=== PATIENT | female | born 1980 | race Caucasian/White ===

== ENCOUNTER 2017-10-08 12:05 | Emergency (ER) | payer MEDICAID ==
[2017-10-08 12:11] VITALS: TEMP 98.1
[2017-10-08] MEDS ORDERED: SODIUM CHLORIDE 0.9% 1,000 ML IV STA (12:40)
[2017-10-08 13:08] LABS: Appearance,Urine Clear (Clear); Bilirubin,Urine Negative (Negative); Blood,Urine Negative (Negative); Color,Urine Yellow; Glucose,Urine (UA) Negative (Negative); Ketones,Urine Negative (Negative); Leukocyte Esterase,Urine Negative (Negative); Nitrite,Urine Negative (Negative); PH, Urine 5.5 (5.0-8.0); Protein,Urine Negative (Negative); Specific Gravity,Urine 1.023 (1.001-1.035); Urobilinogen,Urine <2.0 mg/dL (<2.0)
[2017-10-08 13:09] LABS: Basophils % (A) 0 %; Eosinophils # (A) 0.2 k/uL (0-0.7); Eosinophils % (A) 1 %; HCT 47.2 % (34.0-46.0); HGB 15.9 gm/dL (11.4-16.0); Lymphocytes # (A) 0.7 k/uL (1.0-4.8); Lymphocytes % (A) 5 %; MCH 28.3 pg (25.0-35.0); MCHC 33.6 g/dL (31.0-37.0); MCV 84.3 fL (80.0-100.0); Mean Platelet Volume 8.4; Monocytes # (A) 0.4 k/uL (0-1.0); Monocytes % (A) 3 %; Neutrophils # (A) 12.2 k/uL (1.3-7.7); Neutrophils % (A) 90 %; Platelet Count 200 k/uL (150-450); RDW 12.6 % (11.5-15.5); WBC 13.6 k/uL (3.8-10.6)
[2017-10-08 13:19] LABS: ALT 23 U/L (9-52); AST 21 U/L (14-36); Albumin 4.2 g/dL (3.5-5.0); Alkaline Phosphatase 72 U/L (38-126); Anion Gap 13 mmol/L; Blood Urea Nitrogen 21 mg/dL (7-17); Calcium 9.4 mg/dL (8.4-10.2); Carbon Dioxide 17 mmol/L (22-30); Chloride 109 mmol/L (98-107); Glucose 95 mg/dL (74-99); Potassium 4.5 mmol/L (3.5-5.1); Sodium 139 mmol/L (137-145); Total Bilirubin 0.8 mg/dL (0.2-1.3); Total Protein 7.2 g/dL (6.3-8.2)
--- NOTE | 2017-10-08 13:25 | XR ---
EXAMINATION TYPE: XR chest 2V DATE OF EXAM: 10/08/2017 COMPARISON: NONE HISTORY: Chest pain TECHNIQUE: Frontal and lateral views of the chest are obtained. FINDINGS: There is no focal air space opacity. No evidence for pneumothorax. No pleural effusion. The cardiac silhouette size is within normal limits. The osseous structures are grossly intact. IMPRESSION: 1. No acute cardiopulmonary process.
[2017-10-08 15:01] VITALS: BP 119/59; PULSE 67; RESP 16
--- NOTE | 2017-10-08 15:43 | ED ---
Syncope HPI - General Chief Complaint: Syncope Stated Complaint: Near syncope Time Seen by Provider: 10/08/17 12:15 Source: patient Mode of arrival: ambulatory Limitations: no limitations - History of Present Illness Initial Comments: Patient complains of syncope. She has no chest pain or pressure. She has no belly or back pain. She has no nausea or vomiting. She is taking antibiotics for UTI. She states she has been having some diarrhea. There is no blood in the stool. She has no neck pain or stiffness. She has no focal weakness or trouble walking. She is tolerating oral intake. - Related Data Home Medications Medication Instructions Recorded Confirmed Topiramate [Topamax] 100 mg PO HS 10/08/17 10/08/17 Previous Rx's Medication Instructions Recorded Nitrofurantoin Monohyd/M-Cryst 100 mg PO Q12HR #14 cap 10/08/17 [Macrobid] Allergies Allergy/AdvReac Type Severity Reaction Status Date / Time acetaminophen AdvReac Chest Pain Verified 10/08/17 12:20 [From Excedrin Migraine] aspirin AdvReac Chest Pain Verified 10/08/17 12:20 [From Excedrin Migraine] caffeine AdvReac Chest Pain Verified 10/08/17 12:20 [From Excedrin Migraine] flu vaccination Allergy Unknown Uncoded 10/08/17 12:08 Review of Systems ROS Statement: Those systems with pertinent positive or pertinent negative responses have been documented in the HPI. ROS Other: All systems not noted in ROS Statement are negative. Past Medical History Additional Past Medical History / Comment(s): diverticulitis and migraines History of Any Multi-Drug Resistant Organisms: None Reported Past Surgical History: Adenoidectomy, Hysterectomy, Tonsillectomy Past Psychological History: No Psychological Hx Reported Smoking Status: Never smoker Past Alcohol Use History: Rare Past Drug Use History: None Reported General Exam Limitations: no limitations General appearance: alert, in no apparent distress Head exam: Present: atraumatic, normocephalic, normal inspection Eye exam: Present: normal appearance, PERRL, EOMI. Absent: scleral icterus, conjunctival injection, periorbital swelling ENT exam: Present: normal exam, mucous membranes moist Neck exam: Present: normal inspection. Absent: tenderness, meningismus, lymphadenopathy Respiratory exam: Present: normal lung sounds bilaterally. Absent: respiratory distress, wheezes, rales, rhonchi, stridor Cardiovascular Exam: Present: regular rate, normal rhythm, normal heart sounds. Absent: systolic murmur, diastolic murmur, rubs, gallop, clicks GI/Abdominal exam: Present: soft, normal bowel sounds. Absent: distended, tenderness, guarding, rebound, rigid Extremities exam: Present: normal inspection, full ROM, normal capillary refill. Absent: tenderness, pedal edema, joint swelling, calf tenderness Back exam: Present: normal inspection Neurological exam: Present: alert, oriented X3, CN II-XII intact Psychiatric exam: Present: normal affect, normal mood Skin exam: Present: warm, dry, intact, normal color. Absent: rash Course Vital Signs 10/08/17 10/08/17 12:08 15:00 Temperature 98.1 F Pulse Rate 89 67 Respiratory 18 16 Rate Blood Pressure 135/78 119/59 O2 Sat by Pulse 97 100 Oximetry EKG Findings - EKG Comments: EKG Findings:: Twelve-lead EKG shows ventricular rate 67 bpm, normal TX interval and QRS, axis, no ST elevation or depression, interpreted by me as normal sinus rhythm. Medical Decision Making - Medical Decision Making Patient presents with sick a be. Her EKG is normal. Her laboratory studies are consistent with a mild dehydration. I gave her IV fluids. She is feeling much better. She is tolerating orotate. She has no chest pain or shortness of breath. She is stable for discharge. - Lab Data Result diagrams: 10/08/17 12:45 10/08/17 12:45 Lab Results 10/08/17 10/08/17 10/08/17 Range/Units 12:45 12:45 12:45 WBC 13.6 H (3.8-10.6) k/uL RBC 5.60 H (3.80-5.40) m/uL Hgb 15.9 (11.4-16.0) gm/dL Hct 47.2 H (34.0-46.0) % MCV 84.3 (80.0-100.0) fL MCH 28.3 (25.0-35.0) pg MCHC 33.6 (31.0-37.0) g/dL RDW 12.6 (11.5-15.5) % Plt Count 200 (150-450) k/uL Neutrophils % 90 % Lymphocytes % 5 % Monocytes % 3 % Eosinophils % 1 % Basophils % 0 % Neutrophils # 12.2 H (1.3-7.7) k/uL Lymphocytes # 0.7 L (1.0-4.8) k/uL Monocytes # 0.4 (0-1.0) k/uL Eosinophils # 0.2 (0-0.7) k/uL Basophils # 0.0 (0-0.2) k/uL Sodium 139 (137-145) mmol/L Potassium 4.5 (3.5-5.1) mmol/L Chloride 109 H (98-107) mmol/L Carbon Dioxide 17 L (22-30) mmol/L Anion Gap 13 mmol/L BUN 21 H (7-17) mg/dL Creatinine 0.91 (0.52-1.04) mg/dL Est GFR (CKD-EPI)AfAm >90 (>60 ml/min/1.73 sqM) Est GFR (CKD-EPI)NonAf 81 (>60 ml/min/1.73 sqM) Glucose 95 (74-99) mg/dL Calcium 9.4 (8.4-10.2) mg/dL Total Bilirubin 0.8 (0.2-1.3) mg/dL AST 21 (14-36) U/L ALT 23 (9-52) U/L Alkaline Phosphatase 72 (38-126) U/L Troponin I <0.012 (0.000-0.034) ng/mL Total Protein 7.2 (6.3-8.2) g/dL Albumin 4.2 (3.5-5.0) g/dL Urine Color Urine Appearance (Clear) Urine pH (5.0-8.0) Ur Specific [place] (1.001-1.035) Urine Protein (Negative) Urine Glucose (UA) (Negative) Urine Ketones (Negative) Urine Blood (Negative) Urine Nitrite (Negative) Urine Bilirubin (Negative) Urine Urobilinogen (<2.0) mg/dL Ur Leukocyte Esterase (Negative) 10/08/17 Range/Units 12:45 WBC (3.8-10.6) k/uL RBC (3.80-5.40) m/uL Hgb (11.4-16.0) gm/dL Hct (34.0-46.0) % MCV (80.0-100.0) fL MCH (25.0-35.0) pg MCHC (31.0-37.0) g/dL RDW (11.5-15.5) % Plt Count (150-450) k/uL Neutrophils % % Lymphocytes % % Monocytes % % Eosinophils % % Basophils % % Neutrophils # (1.3-7.7) k/uL Lymphocytes # (1.0-4.8) k/uL Monocytes # (0-1.0) k/uL Eosinophils # (0-0.7) k/uL Basophils # (0-0.2) k/uL Sodium (137-145) mmol/L Potassium (3.5-5.1) mmol/L Chloride (98-107) mmol/L Carbon Dioxide (22-30) mmol/L Anion Gap mmol/L BUN (7-17) mg/dL Creatinine (0.52-1.04) mg/dL Est GFR (CKD-EPI)AfAm (>60 ml/min/1.73 sqM) Est GFR (CKD-EPI)NonAf (>60 ml/min/1.73 sqM) Glucose (74-99) mg/dL Calcium (8.4-10.2) mg/dL Total Bilirubin (0.2-1.3) mg/dL AST (14-36) U/L ALT (9-52) U/L Alkaline Phosphatase (38-126) U/L Troponin I (0.000-0.034) ng/mL Total Protein (6.3-8.2) g/dL Albumin (3.5-5.0) g/dL Urine Color Yellow Urine Appearance Clear (Clear) Urine pH 5.5 (5.0-8.0) Ur Specific [place] 1.023 (1.001-1.035) Urine Protein Negative (Negative) Urine Glucose (UA) Negative (Negative) Urine Ketones Negative (Negative) Urine Blood Negative (Negative) Urine Nitrite Negative (Negative) Urine Bilirubin Negative (Negative) Urine Urobilinogen <2.0 (<2.0) mg/dL Ur Leukocyte Esterase Negative (Negative) Disposition Clinical Impression: Vasovagal syncope Disposition: HOME SELF-CARE Condition: Good Instructions: Syncope (ED) Prescriptions: Nitrofurantoin Monohyd/M-Cryst [Macrobid] 100 mg PO Q12HR #14 cap Referrals: Dmitriy Dougherty MD [Primary Care Provider] - 1-2 days
== END 2017-10-08 15:58 | disposition home or self-care (01) ==
LOC: EC 12:05
DX: R55 Syncope and collapse (principal); R19.7 Diarrhea, unspecified; Z87.440 Personal history of urinary (tract) infections; Z86.69 Personal history of other diseases of the nervous system and sense organs; Z88.6 Allergy status to analgesic agent; Z88.7 Allergy status to serum and vaccine; Z88.8 Allergy status to other drugs, medicaments and biological substances; Z79.899 Other long term (current) drug therapy
CPT/HCPCS: 36415; 71046; 80053; 81003; 84484; 85025; 93005; 96360; 99284

== ENCOUNTER → 2017-10-10 | Outpatient (CLI) | payer MEDICAID ==
[2017-10-10 17:28] LABS: Basophils % (A) 0 %; Eosinophils # (A) 0.2 k/uL (0-0.7); Eosinophils % (A) 3 %; HCT 42.9 % (34.0-46.0); HGB 14.3 gm/dL (11.4-16.0); Lymphocytes # (A) 1.7 k/uL (1.0-4.8); Lymphocytes % (A) 25 %; MCH 28.3 pg (25.0-35.0); MCHC 33.3 g/dL (31.0-37.0); MCV 84.9 fL (80.0-100.0); Monocytes # (A) 0.4 k/uL (0-1.0); Monocytes % (A) 5 %; Neutrophils # (A) 4.5 k/uL (1.3-7.7); Neutrophils % (A) 66 %; Platelet Count 193 k/uL (150-450); RBC 5.05 m/uL (3.80-5.40); RDW 12.6 % (11.5-15.5); WBC 6.9 k/uL (3.8-10.6)
[2017-10-11 14:56] LABS: C. trachomatis,PCR Negative (Neg,Equiv); Chlamydia trachomatis Source Urine; N. gonorrhoeae,PCR Negative (Neg,Equiv); Neisseria Source Urine
== END | disposition home or self-care (01) ==
LOC: LABWHC1 16:48
PROVIDERS: ATTEND Family Medicine
DX: D72.829 Elevated white blood cell count, unspecified (principal); R10.2 Pelvic and perineal pain; R30.0 Dysuria
CPT/HCPCS: 36415; 85025; 87491; 87591

== ENCOUNTER 2018-04-04 06:07 | Emergency (ER) | payer MEDICAID ==
[2018-04-04 06:16] VITALS: PULSE 78
--- NOTE | 2018-04-04 07:04 | XR ---
EXAM: XR Chest, 2 Views CLINICAL HISTORY: Its. reason XR Reason: shortness of breath TECHNIQUE: Frontal and lateral views of the chest. COMPARISON: 10/08/17 FINDINGS: Lungs: Unremarkable. No consolidation. Pleural space: Unremarkable. No pneumothorax. Heart: Unremarkable. No cardiomegaly. Mediastinum: Unremarkable. Bones/joints: Unremarkable. IMPRESSION: Stable chest. No acute pulmonary disease
[2018-04-04] MEDS ORDERED: KETOROLAC 30 MG/ML 1 ML VIAL IVP STA (07:11)
[2018-04-04] MEDS ORDERED: SODIUM CHLORIDE 0.9% 1,000 ML IV ONE (07:11)
[2018-04-04] MEDS ORDERED: IPRATROPIUM-ALBUTEROL 3 ML NEB INHALATION STA (07:14)
--- NOTE | 2018-04-04 07:18 | ED ---
General Adult HPI - General Chief complaint: Upper Respiratory Infection Stated complaint: Chest Congestion/Cough Time Seen by Provider: 04/04/18 06:59 Source: patient, RN notes reviewed, old records reviewed Mode of arrival: ambulatory Limitations: no limitations - History of Present Illness Initial comments: 37 yo female presents with a one-week history of cough and nasal congestion. Patient had initially had URI symptoms which she attributed to viral infection which she caught from her son. The symptoms improved and then secondarily she developed worsening cough, nasal congestion, dyspnea and chest pain with cough. She did also have yellow sputum production. Subjective fever and chills. No abdominal pain. No nausea vomiting. No rash. No dysuria. Patient is otherwise healthy. - Related Data Home Medications Medication Instructions Recorded Confirmed Topiramate [Topamax] 100 mg PO HS 10/08/17 10/08/17 Previous Rx's Medication Instructions Recorded Nitrofurantoin Monohyd/M-Cryst 100 mg PO Q12HR #14 cap 10/08/17 [Macrobid] Albuterol Inhaler [Ventolin Hfa 1 - 2 puff INHALATION Q4HR PRN #1 04/04/18 Inhaler] inhaler Azithromycin [Zithromax Z-pack] 0 mg PO DIRECTED #6 tab 04/04/18 Allergies Allergy/AdvReac Type Severity Reaction Status Date / Time Sulfa (Sulfonamide Allergy Rash/Hives Verified 10/10/17 08:20 Antibiotics) acetaminophen AdvReac Chest Pain Verified 10/08/17 12:20 [From Excedrin Migraine] aspirin AdvReac Chest Pain Verified 10/08/17 12:20 [From Excedrin Migraine] caffeine AdvReac Chest Pain Verified 10/08/17 12:20 [From Excedrin Migraine] flu vaccination Allergy Unknown Uncoded 10/08/17 12:08 Review of Systems ROS Statement: Those systems with pertinent positive or pertinent negative responses have been documented in the HPI. ROS Other: All systems not noted in ROS Statement are negative. Past Medical History Additional Past Medical History / Comment(s): diverticulitis and migraines History of Any Multi-Drug Resistant Organisms: None Reported Past Surgical History: Adenoidectomy, Hysterectomy, Tonsillectomy Past Psychological History: No Psychological Hx Reported Smoking Status: Never smoker Past Alcohol Use History: Rare Past Drug Use History: None Reported General Exam Limitations: no limitations General appearance: alert, in no apparent distress Head exam: Present: atraumatic, normocephalic Eye exam: Present: normal appearance, PERRL, EOMI ENT exam: Absent: normal oropharynx (Mild pharyngeal erythema) Respiratory exam: Present: other (Bronchospastic cough). Absent: respiratory distress Cardiovascular Exam: Present: regular rate, normal rhythm GI/Abdominal exam: Present: soft, distended Neurological exam: Present: alert, oriented X3, CN II-XII intact. Absent: motor sensory deficit Psychiatric exam: Present: normal affect, normal mood Skin exam: Present: warm, dry, intact. Absent: cyanosis, diaphoretic Course Vital Signs 04/04/18 04/04/18 04/04/18 06:14 06:16 07:29 Temperature 97.3 F L Pulse Rate 78 78 Respiratory 18 18 Rate Blood Pressure 143/91 O2 Sat by Pulse 97 Oximetry 04/04/18 07:39 Temperature Pulse Rate 78 Respiratory Rate Blood Pressure O2 Sat by Pulse Oximetry - Reevaluation(s) Reevaluation #1: 04/04/18 08:44 On reevaluation, patient is feeling better, dyspnea improved after DuoNeb Medical Decision Making - Medical Decision Making 37 yo female presenting with signs and symptoms of upper respiratory tract infection. Chest x-rays obtained, negative for focal pneumonia. Patient has been on Augmentin, her symptoms have not improved. She is approximately one week with symptoms. Laboratory studies obtained, normal CMP, mild leukocytosis although the patient has been on steroids. Normal urinalysis, normal lactic acid. Patient receives IV hydration, Toradol, and DuoNeb in the emergency department on reevaluation she is feeling better. She will be discharged with azithromycin, and albuterol. She will return with worsening or changing symptoms. - Lab Data Result diagrams: 04/04/18 07:25 04/04/18 07:25 Lab Results 04/04/18 04/04/18 04/04/18 Range/Units 07:25 07:25 07:25 WBC 14.3 H (3.8-10.6) k/uL RBC 5.28 (3.80-5.40) m/uL Hgb 15.5 (11.4-16.0) gm/dL Hct 46.4 H (34.0-46.0) % MCV 87.8 (80.0-100.0) fL MCH 29.3 (25.0-35.0) pg MCHC 33.4 (31.0-37.0) g/dL RDW 12.6 (11.5-15.5) % Plt Count 238 (150-450) k/uL Neutrophils % 67 % Lymphocytes % 23 % Monocytes % 5 % Eosinophils % 4 % Basophils % 1 % Neutrophils # 9.5 H (1.3-7.7) k/uL Lymphocytes # 3.2 (1.0-4.8) k/uL Monocytes # 0.7 (0-1.0) k/uL Eosinophils # 0.6 (0-0.7) k/uL Basophils # 0.1 (0-0.2) k/uL Sodium 142 (137-145) mmol/L Potassium 4.2 (3.5-5.1) mmol/L Chloride 112 H (98-107) mmol/L Carbon Dioxide 19 L (22-30) mmol/L Anion Gap 11 mmol/L BUN 17 (7-17) mg/dL Creatinine 0.78 (0.52-1.04) mg/dL Est GFR (CKD-EPI)AfAm >90 (>60 ml/min/1.73 sqM) Est GFR (CKD-EPI)NonAf >90 (>60 ml/min/1.73 sqM) Glucose 99 (74-99) mg/dL Plasma Lactic Acid [place] 1.2 (0.7-2.0) mmol/L Calcium 9.1 (8.4-10.2) mg/dL Total Bilirubin 0.5 (0.2-1.3) mg/dL AST 23 (14-36) U/L ALT 18 (9-52) U/L Alkaline Phosphatase 63 (38-126) U/L Total Protein 7.0 (6.3-8.2) g/dL Albumin 4.0 (3.5-5.0) g/dL Urine Color Urine Appearance (Clear) Urine pH (5.0-8.0) Ur Specific [place] (1.001-1.035) Urine Protein (Negative) Urine Glucose (UA) (Negative) Urine Ketones (Negative) Urine Blood (Negative) Urine Nitrite (Negative) Urine Bilirubin (Negative) Urine Urobilinogen (<2.0) mg/dL Ur Leukocyte Esterase (Negative) 04/04/18 Range/Units 07:25 WBC (3.8-10.6) k/uL RBC (3.80-5.40) m/uL Hgb (11.4-16.0) gm/dL Hct (34.0-46.0) % MCV (80.0-100.0) fL MCH (25.0-35.0) pg MCHC (31.0-37.0) g/dL RDW (11.5-15.5) % Plt Count (150-450) k/uL Neutrophils % % Lymphocytes % % Monocytes % % Eosinophils % % Basophils % % Neutrophils # (1.3-7.7) k/uL Lymphocytes # (1.0-4.8) k/uL Monocytes # (0-1.0) k/uL Eosinophils # (0-0.7) k/uL Basophils # (0-0.2) k/uL Sodium (137-145) mmol/L Potassium (3.5-5.1) mmol/L Chloride (98-107) mmol/L Carbon Dioxide (22-30) mmol/L Anion Gap mmol/L BUN (7-17) mg/dL Creatinine (0.52-1.04) mg/dL Est GFR (CKD-EPI)AfAm (>60 ml/min/1.73 sqM) Est GFR (CKD-EPI)NonAf (>60 ml/min/1.73 sqM) Glucose (74-99) mg/dL Plasma Lactic Acid [place] (0.7-2.0) mmol/L Calcium (8.4-10.2) mg/dL Total Bilirubin (0.2-1.3) mg/dL AST (14-36) U/L ALT (9-52) U/L Alkaline Phosphatase (38-126) U/L Total Protein (6.3-8.2) g/dL Albumin (3.5-5.0) g/dL Urine Color Yellow Urine Appearance Clear (Clear) Urine pH 6.0 (5.0-8.0) Ur Specific [place] 1.023 (1.001-1.035) Urine Protein Negative (Negative) Urine Glucose (UA) Negative (Negative) Urine Ketones Negative (Negative) Urine Blood Negative (Negative) Urine Nitrite Negative (Negative) Urine Bilirubin Negative (Negative) Urine Urobilinogen 2.0 (<2.0) mg/dL Ur Leukocyte Esterase Negative (Negative) Disposition Clinical Impression: Upper respiratory infection Disposition: HOME SELF-CARE Condition: Good Instructions: Upper Respiratory Infection (ED), Acute Bronchitis (ED) Prescriptions: Albuterol Inhaler [Ventolin Hfa Inhaler] 1 - 2 puff INHALATION Q4HR PRN #1 inhaler PRN Reason: Shortness Of Breath Azithromycin [Zithromax Z-pack] 0 mg PO DIRECTED #6 tab Is patient prescribed a controlled substance at d/c from ED?: No Referrals: Dmitriy Dougherty MD [Primary Care Provider] - 1-2 days Time of Disposition: 08:47
[2018-04-04 07:58] LABS: Appearance,Urine Clear (Clear); Basophils # (A) 0.1 k/uL (0-0.2); Basophils % (A) 1 %; Bilirubin,Urine Negative (Negative); Blood,Urine Negative (Negative); Color,Urine Yellow; Eosinophils # (A) 0.6 k/uL (0-0.7); Eosinophils % (A) 4 %; Glucose,Urine (UA) Negative (Negative); HCT 46.4 % (34.0-46.0); HGB 15.5 gm/dL (11.4-16.0); Ketones,Urine Negative (Negative); Leukocyte Esterase,Urine Negative (Negative); Lymphocytes # (A) 3.2 k/uL (1.0-4.8); Lymphocytes % (A) 23 %; MCH 29.3 pg (25.0-35.0); MCHC 33.4 g/dL (31.0-37.0); MCV 87.8 fL (80.0-100.0); Mean Platelet Volume 8.1; Monocytes # (A) 0.7 k/uL (0-1.0); Monocytes % (A) 5 %; Neutrophils # (A) 9.5 k/uL (1.3-7.7); Neutrophils % (A) 67 %; Nitrite,Urine Negative (Negative); Platelet Count 238 k/uL (150-450); Protein,Urine Negative (Negative); RBC 5.28 m/uL (3.80-5.40); RDW 12.6 % (11.5-15.5); Specific Gravity,Urine 1.023 (1.001-1.035); WBC 14.3 k/uL (3.8-10.6)
[2018-04-04 08:07] LABS: Anion Gap 11 mmol/L; Calcium 9.1 mg/dL (8.4-10.2); Carbon Dioxide 19 mmol/L (22-30); Chloride 112 mmol/L (98-107); Glucose 99 mg/dL (74-99); Sodium 142 mmol/L (137-145); Total Bilirubin 0.5 mg/dL (0.2-1.3)
[2018-04-04 08:13] LABS: ALT 18 U/L (9-52); AST 23 U/L (14-36); Alkaline Phosphatase 63 U/L (38-126); Blood Urea Nitrogen 17 mg/dL (7-17); Potassium 4.2 mmol/L (3.5-5.1)
[2018-04-04] MEDS ORDERED: DEXAMETHASONE SOD PHOSPHATE 10 MG/ML 1 ML VIAL IV STA (08:44)
[2018-04-04 09:02] VITALS: BP 129/74; RESP 16; TEMP 98.8
== END 2018-04-04 09:00 | disposition home or self-care (01) ==
LOC: EC 06:07
DX: J06.9 Acute upper respiratory infection, unspecified (principal); D72.829 Elevated white blood cell count, unspecified; R14.0 Abdominal distension (gaseous); Z88.2 Allergy status to sulfonamides; Z88.6 Allergy status to analgesic agent; Z88.7 Allergy status to serum and vaccine; Z91.018 Allergy to other foods; Z79.899 Other long term (current) drug therapy; Z86.69 Personal history of other diseases of the nervous system and sense organs; Z90.89 Acquired absence of other organs
CPT/HCPCS: 36415; 94640; 80053; 83605; 85025; 81003; 71046; 99285; 96374; 96375; 96361; J1100; J1885

== ENCOUNTER 2018-05-07 17:33 | Emergency (ER) | payer MEDICAID ==
[2018-05-07 17:46] VITALS: BP 149/84; PULSE 76; RESP 20; TEMP 98.4
[2018-05-07] MEDS ORDERED: KETOROLAC 30 MG/ML 1 ML VIAL IVP STA (18:35)
[2018-05-07] MEDS ORDERED: MORPHINE SULFATE 4 MG/ML SYRINGE IVP STA (18:35)
[2018-05-07] MEDS ORDERED: ONDANSETRON 4 MG/2 ML VIAL IVP STA (18:35)
[2018-05-07] MEDS ORDERED: SODIUM CHLORIDE 0.9% 1,000 ML IV ONE (18:35)
--- NOTE | 2018-05-07 18:36 | ED ---
Abdominal Pain HPI - General Chief Complaint: Abdominal Pain Stated Complaint: pelvic pain Time Seen by Provider: 05/07/18 17:52 Source: patient, RN notes reviewed, old records reviewed Mode of arrival: ambulatory Limitations: no limitations - History of Present Illness Initial Comments: Patient is a 38-year-old female presents emergency department stay with chief complaint of 3 days of progressive left lower quadrant abdominal pain. Patient believes that he is having an acute flareup of diverticulitis. Symptoms started after she ate peanut evidence. Patient states that she's been having diarrhea and complains of rectal pain. Patient states she has had intermittent fevers and chills. No vomiting episodes but does feel nauseated. - Related Data Home Medications Medication Instructions Recorded Confirmed Topiramate [Topamax] 100 mg PO HS 10/08/17 05/07/18 Albuterol Inhaler [Ventolin Hfa 1 - 2 puff INHALATION RT-Q4H PRN 05/07/18 Inhaler] Previous Rx's Medication Instructions Recorded Ciprofloxacin HCl 500 mg PO BID #20 tab 05/07/18 HYDROcodone/APAP 5-325MG [[place] 1 tab PO Q6HR PRN 3 Days #12 tab 05/07/18 5-325] metroNIDAZOLE [Flagyl] 500 mg PO TID #30 tab 05/07/18 Allergies Allergy/AdvReac Type Severity Reaction Status Date / Time Sulfa (Sulfonamide Allergy Rash/Hives Verified 05/07/18 18:28 Antibiotics) acetaminophen AdvReac Chest Pain Verified 05/07/18 18:28 [From Excedrin Migraine] aspirin AdvReac Chest Pain Verified 05/07/18 18:28 [From Excedrin Migraine] caffeine AdvReac Chest Pain Verified 05/07/18 18:28 [From Excedrin Migraine] flu vaccination Allergy Unknown Uncoded 05/07/18 17:46 Review of Systems ROS Statement: Those systems with pertinent positive or pertinent negative responses have been documented in the HPI. ROS Other: All systems not noted in ROS Statement are negative. Past Medical History Past Medical History: Pneumonia Additional Past Medical History / Comment(s): diverticulitis and migraines History of Any Multi-Drug Resistant Organisms: None Reported Past Surgical History: Adenoidectomy, Hysterectomy, Tonsillectomy Past Psychological History: No Psychological Hx Reported Smoking Status: Never smoker Past Alcohol Use History: Rare Past Drug Use History: None Reported General Exam - General Exam Comments Initial Comments: 38-year-old female. Patient is alert and oriented. Patient appears in no acute distress. Limitations: no limitations General appearance: alert, in no apparent distress Head exam: Present: atraumatic, normocephalic, normal inspection Eye exam: Present: normal appearance, PERRL, EOMI. Absent: scleral icterus, conjunctival injection, periorbital swelling ENT exam: Present: normal exam, mucous membranes moist Neck exam: Present: normal inspection. Absent: tenderness, meningismus, lymphadenopathy Respiratory exam: Present: normal lung sounds bilaterally. Absent: respiratory distress, wheezes, rales, rhonchi, stridor Cardiovascular Exam: Present: regular rate, normal rhythm, normal heart sounds. Absent: systolic murmur, diastolic murmur, rubs, gallop, clicks GI/Abdominal exam: Present: soft, tenderness (Left lower quadrant tenderness.), normal bowel sounds. Absent: distended, guarding, rebound, rigid Extremities exam: Present: normal inspection, full ROM, normal capillary refill. Absent: tenderness, pedal edema, joint swelling, calf tenderness Back exam: Present: normal inspection Neurological exam: Present: alert, oriented X3, CN II-XII intact Psychiatric exam: Present: normal affect, normal mood Course Vital Signs 05/07/18 17:43 Temperature 98.4 F Pulse Rate 76 Respiratory 20 Rate Blood Pressure 149/84 O2 Sat by Pulse 99 Oximetry Medical Decision Making - Medical Decision Making Patient is a 38-year-old female presents today with chief complaint of 3 days of left-sided lower abdominal pain. She reports the pain with having a bowel movement. She's had history of diverticulitis in the past. Symptoms started after eating peanuts. At this time patient's lab work does show leukocytosis with blood cell count is elevated at 14,000. Patient otherwise is unremarkable lab work. She does have an outpatient transvaginal ultrasound which did show some right ovarian follicles likely ruptured hemorrhagic cyst however Patient has no pain over the right quadrant. Patient at this time CT was completed. There is evidence of some fat stranding consistent with diverticulitis. We'll give the Patient does of IV antibiotic emergency department discharge the Patient home on Cipro Flagyl and pain medication. We'll be Somewhat Conform. Discussed Following up with PCP and GI. Patient Agrees Treatment Plan Will Comply. - Lab Data Result diagrams: 05/07/18 18:20 05/07/18 18:20 Lab Results 05/07/18 05/07/18 05/07/18 Range/Units 18:20 18:20 18:20 WBC 14.1 H (3.8-10.6) k/uL RBC 5.09 (3.80-5.40) m/uL Hgb 14.6 (11.4-16.0) gm/dL Hct 44.5 (34.0-46.0) % MCV 87.4 (80.0-100.0) fL MCH 28.7 (25.0-35.0) pg MCHC 32.8 (31.0-37.0) g/dL RDW 12.5 (11.5-15.5) % Plt Count 227 (150-450) k/uL Neutrophils % 75 % Lymphocytes % 18 % Monocytes % 3 % Eosinophils % 2 % Basophils % 0 % Neutrophils # 10.6 H (1.3-7.7) k/uL Lymphocytes # 2.6 (1.0-4.8) k/uL Monocytes # 0.5 (0-1.0) k/uL Eosinophils # 0.3 (0-0.7) k/uL Basophils # 0.0 (0-0.2) k/uL Sodium 139 (137-145) mmol/L Potassium 4.1 (3.5-5.1) mmol/L Chloride 111 H (98-107) mmol/L Carbon Dioxide 16 L (22-30) mmol/L Anion Gap 12 mmol/L BUN 26 H (7-17) mg/dL Creatinine 0.87 (0.52-1.04) mg/dL Est GFR (CKD-EPI)AfAm >90 (>60 ml/min/1.73 sqM) Est GFR (CKD-EPI)NonAf 86 (>60 ml/min/1.73 sqM) Glucose 91 (74-99) mg/dL Calcium 9.7 (8.4-10.2) mg/dL Total Bilirubin 0.6 (0.2-1.3) mg/dL AST 23 (14-36) U/L ALT 24 (9-52) U/L Alkaline Phosphatase 61 (38-126) U/L Total Protein 7.2 (6.3-8.2) g/dL Albumin 4.1 (3.5-5.0) g/dL Amylase 69 (30-110) U/L Lipase 170 (23-300) U/L Urine Color Yellow Urine Appearance Clear (Clear) Urine pH 5.5 (5.0-8.0) Ur Specific [place] 1.022 (1.001-1.035) Urine Protein Negative (Negative) Urine Glucose (UA) Negative (Negative) Urine Ketones Negative (Negative) Urine Blood Negative (Negative) Urine Nitrite Negative (Negative) Urine Bilirubin Negative (Negative) Urine Urobilinogen <2.0 (<2.0) mg/dL Ur Leukocyte Esterase Negative (Negative) - Radiology Data Radiology results: report reviewed Some fat stranding around the distal sigmoid colon in the pelvis consistent with mild focal diverticulitis no drainable fluid collection that appears new compared old exam. Moderate colonic diverticulosis normal appendix. Disposition Clinical Impression: Acute diverticulitis Disposition: HOME SELF-CARE Condition: Good Instructions: Diverticulitis (ED), Diverticulitis Diet (ED) Additional Instructions: Patient has a close follow-up with primary care physician. Clear liquid diet for the next 1-2 days. Make sure also taking a stool softener such as MiraLAX. Return to emergency department if any alarming signs or symptoms occur. Prescriptions: Ciprofloxacin HCl 500 mg PO BID #20 tab HYDROcodone/APAP 5-325MG [[place] 5-325] 1 tab PO Q6HR PRN 3 Days #12 tab PRN Reason: Pain metroNIDAZOLE [Flagyl] 500 mg PO TID #30 tab Is patient prescribed a controlled substance at d/c from ED?: Yes When asked, does pt state using other controlled substances?: No If prescribed controlled substance>3 days was MAPS reviewed?: Prescribed <3 Days If opioid is for acute pain is fill amount 7 days or less?: Yes If Rx opioid, was Start Talking consent form obtained?: Yes Referrals: Dmitriy Dougherty MD [Primary Care Provider] - 1-2 days Time of Disposition: 20:17
[2018-05-07 18:39] LABS: Basophils % (A) 0 %; Eosinophils # (A) 0.3 k/uL (0-0.7); Eosinophils % (A) 2 %; HCT 44.5 % (34.0-46.0); HGB 14.6 gm/dL (11.4-16.0); Lymphocytes # (A) 2.6 k/uL (1.0-4.8); Lymphocytes % (A) 18 %; MCH 28.7 pg (25.0-35.0); MCHC 32.8 g/dL (31.0-37.0); MCV 87.4 fL (80.0-100.0); Monocytes # (A) 0.5 k/uL (0-1.0); Monocytes % (A) 3 %; Neutrophils # (A) 10.6 k/uL (1.3-7.7); Neutrophils % (A) 75 %; Platelet Count 227 k/uL (150-450); RBC 5.09 m/uL (3.80-5.40); RDW 12.5 % (11.5-15.5); WBC 14.1 k/uL (3.8-10.6)
[2018-05-07 18:44] LABS: Appearance,Urine Clear (Clear); Bilirubin,Urine Negative (Negative); Blood,Urine Negative (Negative); Color,Urine Yellow; Glucose,Urine (UA) Negative (Negative); Ketones,Urine Negative (Negative); Leukocyte Esterase,Urine Negative (Negative); Nitrite,Urine Negative (Negative); PH, Urine 5.5 (5.0-8.0); Protein,Urine Negative (Negative); Specific Gravity,Urine 1.022 (1.001-1.035); Urobilinogen,Urine <2.0 mg/dL (<2.0)
[2018-05-07] MEDS ORDERED: SODIUM CHLORIDE 0.9% 1,000 ML IV SCH (18:45)
[2018-05-07 19:05] LABS: ALT 24 U/L (9-52); AST 23 U/L (14-36); Albumin 4.1 g/dL (3.5-5.0); Alkaline Phosphatase 61 U/L (38-126); Amylase 69 U/L (30-110); Anion Gap 12 mmol/L; Blood Urea Nitrogen 26 mg/dL (7-17); Calcium 9.7 mg/dL (8.4-10.2); Carbon Dioxide 16 mmol/L (22-30); Chloride 111 mmol/L (98-107); Glucose 91 mg/dL (74-99); Lipase 170 U/L (23-300); Potassium 4.1 mmol/L (3.5-5.1); Sodium 139 mmol/L (137-145); Total Bilirubin 0.6 mg/dL (0.2-1.3); Total Protein 7.2 g/dL (6.3-8.2)
--- NOTE | 2018-05-07 19:56 | CT ---
EXAMINATION TYPE: CT abdomen pelvis w con DATE OF EXAM: 05/07/2018 COMPARISON: 02/22/2014 HISTORY: Pelvic pain, rectal pain, elevated wbc's. History of diverticulitis. CT DLP: 1329.6 mGycm Automated exposure control for dose reduction was used. TECHNIQUE: Helical acquisition of images was performed from the lung bases through the pelvis. CONTRAST: Performed without Oral Contrast and with IV Contrast, patient injected with 100 mL of Isovue M300. FINDINGS: Lung bases are clear. There is no pleural effusion. Heart size is normal. There is no pericardial eff usion. Liver spleen pancreas gallbladder appear normal. Bile ducts are not dilated. Stomach appears normal. There is no adrenal mass. Kidneys show satisfactory contrast opacification. There is no hydronephrosi s. There is no retroperitoneal adenopathy. There is no mesenteric adenopathy or edema. The appendix appears normal. Appendix is lateral. There are multiple diverticula in the large bowel. There is no intestinal wall thickening. There are no dilated loops. Bladder distends smoothly. There is no free fluid in the pelvis. There is small umbilical hernia that contains fat. There is minimal f at stranding around the distal sigmoid colon. Lumbar spine is intact. Bony pelvis appears intact. IMPRESSION: THERE IS SOME FAT STRANDING AROUND THE DISTAL SIGMOID COLON IN THE PELVIS CONSISTENT WITH MILD FOCAL DIVERTICULITIS. NO DRAINABLE FLUID COLLECTION. THIS APPEARS NEW COMPARED TO OLD EXAM. THERE IS MODERA TE COLONIC DIVERTICULOSIS. NORMAL APPENDIX.
== END 2018-05-07 21:45 | disposition home or self-care (01) ==
LOC: EC 17:33
DX: K57.92 Diverticulitis of intestine, part unspecified, without perforation or abscess without bleeding (principal); N83.01 Follicular cyst of right ovary; D72.829 Elevated white blood cell count, unspecified; G43.909 Migraine, unspecified, not intractable, without status migrainosus; Z79.899 Other long term (current) drug therapy; Z88.2 Allergy status to sulfonamides; Z88.6 Allergy status to analgesic agent; Z88.7 Allergy status to serum and vaccine; Z91.018 Allergy to other foods; Z90.710 Acquired absence of both cervix and uterus
CPT/HCPCS: 36415; 80053; 82150; 83690; 85025; 81003; 74177; 99284; 96365; 96375 ×3; 96361; J2270; J2405; J0696; J1885; Q9967; 96374

== ENCOUNTER → 2018-05-07 | Outpatient (CLI) | payer MEDICAID ==
--- NOTE | 2018-05-07 12:08 | US ---
EXAMINATION TYPE: US transvaginal DATE OF EXAM: 05/07/2018 COMPARISON: NONE CLINICAL HISTORY: R10.2. TECHNIQUE: Transvaginal (TV). Date of LMP: previous hysterectomy EXAM MEASUREMENTS: Uterus: Surgically absent Endometrial Stripe: Surgically absent Right Ovary: 3.4 x 2.4 x 1.7 cm Left Ovary: 4.1 x 2.4 x 2.4 cm 1. Uterus: Surgically absent 2. Endometrium: Surgically absent 3. Right Ovary: wnl. Multiple small follicles. 4. Left Ovary: wnl, not as well visualized at right due to overlying bowel Spectral, color and waveform doppler imaging shows good arterial and venous flow within the ovaries ; there is no evidence for ovarian torsion. 5. Bilateral Adnexa: wnl 6. Posterior cul-de-sac: wnl IMPRESSION: Multiple physiologic right ovarian follicles with small amount of right paraovarian free fluid that may be sequela of recently ruptured cyst.
[2018-05-07 14:50] LABS: Albumin 3.9 g/dL (3.5-5.0); Calcium 9.6 mg/dL (8.4-10.2); Potassium 4.1 mmol/L (3.5-5.1); Total Bilirubin 0.7 mg/dL (0.2-1.3)
[2018-05-07 14:59] LABS: Basophils % (A) 0 %; Eosinophils # (A) 0.2 k/uL (0-0.7); Eosinophils % (A) 1 %; HCT 42.8 % (34.0-46.0); HGB 14.5 gm/dL (11.4-16.0); Lymphocytes # (A) 2.1 k/uL (1.0-4.8); Lymphocytes % (A) 19 %; MCH 29.7 pg (25.0-35.0); MCHC 33.9 g/dL (31.0-37.0); MCV 87.5 fL (80.0-100.0); Monocytes # (A) 0.4 k/uL (0-1.0); Monocytes % (A) 4 %; Neutrophils # (A) 8.2 k/uL (1.3-7.7); Neutrophils % (A) 75 %; Platelet Count 205 k/uL (150-450); RBC 4.89 m/uL (3.80-5.40); RDW 12.5 % (11.5-15.5)
== END | disposition home or self-care (01) ==
LOC: RADUSMAIN 09:40
PROVIDERS: ATTEND Nurse Practitioner Family
DX: R94.8 Abnormal results of function studies of other organs and systems (principal); R10.2 Pelvic and perineal pain
CPT/HCPCS: 76830; 80053; 85025

== ENCOUNTER → 2019-05-27 | Outpatient (CLI) | payer MEDICAID ==
[2019-05-27 08:41] LABS: Basophils # (A) 0.1 k/uL (0-0.2); Basophils % (A) 1 %; Eosinophils # (A) 0.3 k/uL (0-0.7); Eosinophils % (A) 3 %; HCT 45.4 % (34.0-46.0); HGB 15.4 gm/dL (11.4-16.0); Lymphocytes # (A) 2.3 k/uL (1.0-4.8); Lymphocytes % (A) 23 %; MCH 30.4 pg (25.0-35.0); MCHC 33.8 g/dL (31.0-37.0); MCV 89.8 fL (80.0-100.0); Mean Platelet Volume 7.6; Monocytes # (A) 0.5 k/uL (0-1.0); Monocytes % (A) 4 %; Neutrophils # (A) 7.1 k/uL (1.3-7.7); Neutrophils % (A) 69 %; Platelet Count 216 k/uL (150-450); RBC 5.06 m/uL (3.80-5.40); RDW 12.4 % (11.5-15.5); WBC 10.3 k/uL (3.8-10.6)
[2019-05-27 08:58] LABS: ALT 47 U/L (9-52); AST 40 U/L (14-36); African American GFR (CKD) >90 (>60 ml/min/1.73 sqM); Albumin 4.3 g/dL (3.5-5.0); Albumin/Globulin Ratio 1.3; Alkaline Phosphatase 79 U/L (38-126); Anion Gap 9 mmol/L; Bilirubin,Unconjugated 0.5 mg/dL (0.0-1.1); Blood Urea Nitrogen 23 mg/dL (7-17); Calcium 9.3 mg/dL (8.4-10.2); Carbon Dioxide 22 mmol/L (22-30); Chloride 109 mmol/L (98-107); Cholesterol 223 mg/dL (<200); Globulin 3.3 g/dL; Glucose 120 mg/dL (74-99); HDL Cholesterol 42 mg/dL (40-60); LDL Cholesterol,Calculated 145 mg/dL (0-99); Potassium 4.5 mmol/L (3.5-5.1); Sodium 140 mmol/L (137-145); Total Bilirubin 0.7 mg/dL (0.2-1.3); Total Protein 7.6 g/dL (6.3-8.2); Triglycerides 182 mg/dL (<150)
[2019-05-27 09:14] LABS: T4, Free (Free Thyroxine) 0.97 ng/dL (0.78-2.19)
== END ==
LOC: LABMAIN 07:49
PROVIDERS: ATTEND Family Medicine
DX: Z00.00 Encounter for general adult medical examination without abnormal findings (principal); Z79.899 Other long term (current) drug therapy
CPT/HCPCS: 36415; 80053; 80061; 82248; 84439; 84443; 85025

== ENCOUNTER 2019-06-14 08:56 | Emergency (ER) | payer MEDICAID ==
[2019-06-14 09:10] VITALS: BP 157/95; PULSE 92; RESP 18; TEMP 97.6
[2019-06-14] MEDS ORDERED: SODIUM CHLORIDE 0.9% 1,000 ML IV ONE (09:17)
[2019-06-14] MEDS ORDERED: FAMOTIDINE 20 MG/2 ML VIAL IV STA (09:17)
[2019-06-14] MEDS ORDERED: diphenhydrAMINE 50 MG/ML 1 ML VIAL IVP STA (09:17)
[2019-06-14] MEDS ORDERED: methylPREDNISolone SOD SUCCI 125 MG/2 ML VIAL IV STA (09:17)
[2019-06-14] MEDS ORDERED: ONDANSETRON 4 MG/2 ML VIAL IVP STA (09:18)
--- NOTE | 2019-06-14 10:21 | ED ---
Allergic Reaction HPI - General Chief complaint: Allergic Reaction Stated complaint: allergic reaction Time Seen by Provider: 06/14/19 09:14 Source: patient, RN notes reviewed Mode of arrival: ambulatory Limitations: no limitations - History of Present Illness Initial Comments: 39-year-old female presents emergency Department with chief complaint of ALL ERGIC reaction. Patient states that she was started on clindamycin started with symptoms over the last day or so. Patient states she is diffuse hives. Patient states she's. She's been taking Benadryl and Pepcid last dose was last night though. Patient states that she has burning sensation all over no difficulty swelling no difficulty breathing. - Related Data Home Medications Medication Instructions Recorded Confirmed Topiramate [Topamax] 100 mg PO HS 10/08/17 05/07/18 Albuterol Inhaler [Ventolin Hfa 1 - 2 puff INHALATION RT-Q4H PRN 05/07/18 05/07/18 Inhaler] Previous Rx's Medication Instructions Recorded Ciprofloxacin HCl 500 mg PO BID #20 tab 05/07/18 HYDROcodone/APAP 5-325MG [Marshall 1 tab PO Q6HR PRN 3 Days #12 tab 05/07/18 5-325] metroNIDAZOLE [Flagyl] 500 mg PO TID #30 tab 05/07/18 Famotidine [Pepcid] 20 mg PO BID #28 tablet 06/14/19 diphenhydrAMINE [Benadryl] 50 mg PO QID PRN #20 capsule 06/14/19 predniSONE 50 mg PO DAILY #5 tab 06/14/19 Allergies Allergy/AdvReac Type Severity Reaction Status Date / Time clindamycin Allergy Rash/Hives Verified 06/14/19 09:06 Sulfa (Sulfonamide Allergy Rash/Hives Verified 06/14/19 09:06 Antibiotics) acetaminophen AdvReac Chest Pain Verified 06/14/19 09:06 [From Excedrin Migraine] aspirin AdvReac Chest Pain Verified 06/14/19 09:06 [From Excedrin Migraine] caffeine AdvReac Chest Pain Verified 06/14/19 09:06 [From Excedrin Migraine] flu vaccination Allergy Unknown Uncoded 05/07/18 17:46 Review of Systems ROS Statement: Those systems with pertinent positive or pertinent negative responses have been documented in the HPI. ROS Other: All systems not noted in ROS Statement are negative. Past Medical History Past Medical History: Pneumonia Additional Past Medical History / Comment(s): diverticulitis and migraines History of Any Multi-Drug Resistant Organisms: None Reported Past Surgical History: Adenoidectomy, Hysterectomy, Tonsillectomy Past Psychological History: No Psychological Hx Reported Smoking Status: Never smoker Past Alcohol Use History: Rare Past Drug Use History: None Reported General Exam Limitations: no limitations General appearance: alert, in no apparent distress Head exam: Present: atraumatic, normocephalic, normal inspection ENT exam: Present: normal exam, normal oropharynx, mucous membranes moist Neck exam: Present: normal inspection, full ROM. Absent: tenderness, meningismus, lymphadenopathy Respiratory exam: Present: normal lung sounds bilaterally. Absent: respiratory distress, wheezes, rales, rhonchi, stridor Cardiovascular Exam: Present: regular rate, normal rhythm, normal heart sounds. Absent: systolic murmur, diastolic murmur, rubs, gallop, clicks Skin exam: Present: warm, dry, intact, normal color, rash, urticaria Course Vital Signs 06/14/19 09:07 Temperature 97.6 F Pulse Rate 92 Respiratory 18 Rate Blood Pressure 157/95 O2 Sat by Pulse 98 Oximetry Medical Decision Making - Medical Decision Making Patient presented for ALLERGIC reaction. Patient mildly improved after IV meds. Patient discharged on prednisone and Benadryl and Pepcid. Disposition Clinical Impression: Allergic reaction to drug Disposition: HOME SELF-CARE Condition: Stable Instructions (If sedation given, give patient instructions): Antibiotic Medication Allergy (ED) Additional Instructions: Please return to the Emergency Department if symptoms worsen or any other concerns. Prescriptions: diphenhydrAMINE [Benadryl] 50 mg PO QID PRN #20 capsule PRN Reason: Allergic Reaction Famotidine [Pepcid] 20 mg PO BID #28 tablet predniSONE 50 mg PO DAILY #5 tab Is patient prescribed a controlled substance at d/c from ED?: No Referrals: Dmitriy Dougherty MD [Primary Care Provider] - 1-2 days Time of Disposition: 12:40
== END 2019-06-14 13:00 | disposition home or self-care (01) ==
LOC: EC 08:56
DX: L50.0 Allergic urticaria (principal); T36.8X5A Adverse effect of other systemic antibiotics, initial encounter; Z79.899 Other long term (current) drug therapy; Z88.1 Allergy status to other antibiotic agents; Z88.2 Allergy status to sulfonamides; Z88.6 Allergy status to analgesic agent; Z91.018 Allergy to other foods; Z88.7 Allergy status to serum and vaccine
CPT/HCPCS: 99283; 96374; 96375 ×3; 96361 ×2; J1200; J2930; J2405

== ENCOUNTER → 2019-07-02 | Outpatient (CLI) | payer MEDICAID ==
[2019-07-02 16:15] LABS: Estradiol 84.2 pg/mL; Follicle Stimulating Hormone 2.5 mIU/mL
== END | disposition home or self-care (01) ==
LOC: RADXRMAIN 10:21
PROVIDERS: ATTEND Obstetrics & Gynecology
DX: N95.9 Unspecified menopausal and perimenopausal disorder (principal); R23.2 Flushing
CPT/HCPCS: 82670; 83001; 84144; 84403

== ENCOUNTER 2019-09-01 08:35 | Emergency (ER) | payer MEDICAID ==
[2019-09-01 08:44] VITALS: RESP 18
[2019-09-01] MEDS ORDERED: SODIUM CHLORIDE 0.9% 1,000 ML IV STA (08:58)
--- NOTE | 2019-09-01 09:11 | ED ---
General Adult HPI - General Chief complaint: Abdominal Pain Stated complaint: abd pain Time Seen by Provider: 09/01/19 08:46 Source: patient, RN notes reviewed, old records reviewed Mode of arrival: ambulatory Limitations: no limitations - History of Present Illness Initial comments: 39 -year-old female presenting for evaluation of left-sided abdominal pain. Pain is been present for the past 3 days. It has worsened over the course of 3 days. She's had loose stool with a thin caliber and some minimal rectal bleeding with bowel movements. She has a history of diverticulitis. She states her symptoms are similar to previous episode of diverticulitis. She denies fevers but states she's had some chills. Pain predominantly left lower quadrant and suprapubic. She has previous surgical history of hysterectomy. No vaginal bleeding or vaginal discharge. No significant vomiting. - Related Data Home Medications Medication Instructions Recorded Confirmed Topiramate [Topamax] 100 mg PO HS 10/08/17 09/01/19 Multivitamins, Thera [Multivitamin 1 tab PO DAILY 09/01/19 09/01/19 (formulary)] Previous Rx's Medication Instructions Recorded Amoxic-Pot Clav 875-125Mg 1 tab PO Q12HR #20 tablet 09/01/19 [Augmentin 875-125] Allergies Allergy/AdvReac Type Severity Reaction Status Date / Time clindamycin Allergy Rash/Hives Verified 09/01/19 10:20 perfume Allergy Unknown Verified 09/01/19 10:20 Sulfa (Sulfonamide Allergy Rash/Hives Verified 09/01/19 10:20 Antibiotics) acetaminophen AdvReac Chest Pain Verified 09/01/19 10:20 [From Excedrin Migraine] aspirin AdvReac Chest Pain Verified 09/01/19 10:20 [From Excedrin Migraine] caffeine AdvReac Chest Pain Verified 09/01/19 10:20 [From Excedrin Migraine] flu vaccination Allergy Unknown Uncoded 09/01/19 10:20 Review of Systems ROS Statement: Those systems with pertinent positive or pertinent negative responses have been documented in the HPI. ROS Other: All systems not noted in ROS Statement are negative. Past Medical History Past Medical History: Pneumonia Additional Past Medical History / Comment(s): diverticulitis and migraines History of Any Multi-Drug Resistant Organisms: None Reported Past Surgical History: Adenoidectomy, Hysterectomy, Tonsillectomy Past Psychological History: No Psychological Hx Reported Smoking Status: Never smoker Past Alcohol Use History: Rare Past Drug Use History: None Reported General Exam Limitations: no limitations General appearance: alert, in no apparent distress Head exam: Present: atraumatic, normocephalic Eye exam: Present: normal appearance, PERRL ENT exam: Present: normal exam Neck exam: Present: normal inspection. Absent: tenderness, meningismus Respiratory exam: Present: normal lung sounds bilaterally. Absent: respiratory distress, wheezes Cardiovascular Exam: Present: regular rate, normal rhythm GI/Abdominal exam: Present: soft, tenderness (Left lower quadrant tenderness to palpation, suprapubic tenderness to palpation. No rebound or guarding.). Absen t: distended, guarding, rebound Rectal exam: Present: normal inspection, normal rectal tone, tenderness. Absent: black stool, bloody stool, fecal impaction, hemorrhoids Extremities exam: Present: normal inspection, normal capillary refill. Absent: pedal edema, calf tenderness Neurological exam: Present: alert, oriented X3, CN II-XII intact. Absent: motor sensory deficit Psychiatric exam: Present: normal affect, normal mood Skin exam: Present: warm, dry, intact. Absent: cyanosis, diaphoretic Course Vital Signs 09/01/19 09/01/19 08:41 11:07 Temperature 97.9 F 98 F Pulse Rate 76 67 Respiratory 18 18 Rate Blood Pressure 148/95 147/95 O2 Sat by Pulse 98 98 Oximetry Medical Decision Making - Medical Decision Making 39-year-old female with left lower quadrant suprapubic pain for the past several days. History of diverticulitis. Workup reveals mild leukocytosis at 11.2, normal electrolytes, stable hemoglobin. CT is performed which shows some mild diverticulitis as well as some attenuation variance in the kidneys possible pyelonephritis, urinalysis is negative for significant signs of infection. She has hepatomegaly and steatosis on CT as well. She is initiated on ceftriaxone and metronidazole emergency department. Vitals are stable, she is well- appearing. She will be discharged on oral antibiotics with close outpatient follow-up. She will return with worsening or changing symptoms. - Lab Data Result diagrams: 09/01/19 09:05 09/01/19 09:05 Lab Results 09/01/19 09/01/19 09/01/19 Range/Units 09:05 09:05 09:05 WBC 11.6 H (3.8-10.6) k/uL RBC 5.15 (3.80-5.40) m/uL Hgb 15.3 (11.4-16.0) gm/dL Hct 45.1 (34.0-46.0) % MCV 87.6 (80.0-100.0) fL MCH 29.6 (25.0-35.0) pg MCHC 33.8 (31.0-37.0) g/dL RDW 12.3 (11.5-15.5) % Plt Count 203 (150-450) k/uL Neutrophils % 73 % Lymphocytes % 19 % Monocytes % 4 % Eosinophils % 2 % Basophils % 0 % Neutrophils # 8.5 H (1.3-7.7) k/uL Lymphocytes # 2.2 (1.0-4.8) k/uL Monocytes # 0.4 (0-1.0) k/uL Eosinophils # 0.3 (0-0.7) k/uL Basophils # 0.0 (0-0.2) k/uL PT (9.0-12.0) sec INR (<1.2) APTT (22.0-30.0) sec Sodium 138 (137-145) mmol/L Potassium 4.4 (3.5-5.1) mmol/L Chloride 108 H (98-107) mmol/L Carbon Dioxide 20 L (22-30) mmol/L Anion Gap 10 mmol/L BUN 16 (7-17) mg/dL Creatinine 0.85 (0.52-1.04) mg/dL Est GFR (CKD-EPI)AfAm >90 (>60 ml/min/1.73 sqM) Est GFR (CKD-EPI)NonAf 88 (>60 ml/min/1.73 sqM) Glucose 127 H (74-99) mg/dL Plasma Lactic Acid Rogelio (0.7-2.0) mmol/L Calcium 9.4 (8.4-10.2) mg/dL Total Bilirubin 1.1 (0.2-1.3) mg/dL AST 30 (14-36) U/L ALT 35 H (4-34) U/L Alkaline Phosphatase 83 (38-126) U/L Total Protein 7.2 (6.3-8.2) g/dL Albumin 4.1 (3.5-5.0) g/dL Amylase 58 (30-110) U/L Lipase 106 (23-300) U/L Urine HCG, Qual Not Detected (Not Detectd) 09/01/19 09/01/19 Range/Units 09:05 09:05 WBC (3.8-10.6) k/uL RBC (3.80-5.40) m/uL Hgb (11.4-16.0) gm/dL Hct (34.0-46.0) % MCV (80.0-100.0) fL MCH (25.0-35.0) pg MCHC (31.0-37.0) g/dL RDW (11.5-15.5) % Plt Count (150-450) k/uL Neutrophils % % Lymphocytes % % Monocytes % % Eosinophils % % Basophils % % Neutrophils # (1.3-7.7) k/uL Lymphocytes # (1.0-4.8) k/uL Monocytes # (0-1.0) k/uL Eosinophils # (0-0.7) k/uL Basophils # (0-0.2) k/uL PT 9.6 (9.0-12.0) sec INR 0.9 (<1.2) APTT 27.9 (22.0-30.0) sec Sodium (137-145) mmol/L Potassium (3.5-5.1) mmol/L Chloride (98-107) mmol/L Carbon Dioxide (22-30) mmol/L Anion Gap mmol/L BUN (7-17) mg/dL Creatinine (0.52-1.04) mg/dL Est GFR (CKD-EPI)AfAm (>60 ml/min/1.73 sqM) Est GFR (CKD-EPI)NonAf (>60 ml/min/1.73 sqM) Glucose (74-99) mg/dL Plasma Lactic Acid Rogelio 1.2 (0.7-2.0) mmol/L Calcium (8.4-10.2) mg/dL Total Bilirubin (0.2-1.3) mg/dL AST (14-36) U/L ALT (4-34) U/L Alkaline Phosphatase (38-126) U/L Total Protein (6.3-8.2) g/dL Albumin (3.5-5.0) g/dL Amylase (30-110) U/L Lipase (23-300) U/L Urine HCG, Qual (Not Detectd) Disposition Clinical Impression: Diverticulitis Disposition: HOME SELF-CARE Condition: Good Instructions (If sedation given, give patient instructions): Diverticulitis (ED) Prescriptions: Amoxic-Pot Clav 875-125Mg [Augmentin 875-125] 1 tab PO Q12HR #20 tablet Is patient prescribed a controlled substance at d/c from ED?: No Referrals: Dmitriy Dougherty MD [Primary Care Provider] - 1-2 days Time of Disposition: 11:13
[2019-09-01 09:22] LABS: Basophils % (A) 0 %; Eosinophils # (A) 0.3 k/uL (0-0.7); Eosinophils % (A) 2 %; HCT 45.1 % (34.0-46.0); HGB 15.3 gm/dL (11.4-16.0); Lymphocytes # (A) 2.2 k/uL (1.0-4.8); Lymphocytes % (A) 19 %; MCH 29.6 pg (25.0-35.0); MCHC 33.8 g/dL (31.0-37.0); MCV 87.6 fL (80.0-100.0); Monocytes # (A) 0.4 k/uL (0-1.0); Monocytes % (A) 4 %; Neutrophils # (A) 8.5 k/uL (1.3-7.7); Neutrophils % (A) 73 %; Platelet Count 203 k/uL (150-450); RBC 5.15 m/uL (3.80-5.40); RDW 12.3 % (11.5-15.5); WBC 11.6 k/uL (3.8-10.6)
[2019-09-01 09:36] LABS: ALT 35 U/L (4-34); AST 30 U/L (14-36); African American GFR (CKD) >90 (>60 ml/min/1.73 sqM); Albumin 4.1 g/dL (3.5-5.0); Alkaline Phosphatase 83 U/L (38-126); Amylase 58 U/L (30-110); Anion Gap 10 mmol/L; Blood Urea Nitrogen 16 mg/dL (7-17); Calcium 9.4 mg/dL (8.4-10.2); Carbon Dioxide 20 mmol/L (22-30); Chloride 108 mmol/L (98-107); Glucose 127 mg/dL (74-99); Non-African American GFR(CKD) 88 (>60 ml/min/1.73 sqM); Potassium 4.4 mmol/L (3.5-5.1); Sodium 138 mmol/L (137-145); Total Bilirubin 1.1 mg/dL (0.2-1.3); Total Protein 7.2 g/dL (6.3-8.2)
[2019-09-01 09:39] LABS: INR 0.9 (<1.2); Partial Thromboplastin Time 27.9 sec (22.0-30.0); Prothrombin Time 9.6 sec (9.0-12.0)
--- NOTE | 2019-09-01 10:22 | CT ---
EXAMINATION TYPE: CT abdomen pelvis w con DATE OF EXAM: 09/01/2019 COMPARISON: 05/07/2018 HISTORY: 39-year-old female LLQ pain TECHNIQUE: Contiguous axial scanning of the abdomen and pelvis following administration of 100 ml Iso donal 300 IV contrast. Delayed images through the kidneys and coronal/sagittal reconstructions perform ed. CT DLP: 1976.8 mGycm Automated exposure control for dose reduction was used. FINDINGS: Heart normal size without pericardial effusion. Lung bases clear without pleural effusion. Liver enlarged measuring 22.3 cm with low attenuation. No focal lesion seen. No biliary ductal dilata tion. Portal venous system is patent. Gallbladder, right kidney, spleen, and pancreas appear within normal limits. Some scattered prominent mesenteric lymph nodes, mildly enlarged in the right lower quadrant measurin g up to 1 cm, stable from 05/07/2018 suggesting chronic postinflammatory etiology. Subtle cortical hypoenhancement medial left kidney, axial image 30 may be partial volume averaging af fects. Kidneys otherwise unremarkable. No dilated small bowel, free fluid, or free air. Normal appendix. Scattered [id number] stool. Generalized colonic diverticulosis. Focal wall thickening along the mid to distal sigmoid colon, refer to axial image 74 with surrounding fat stranding and a trace pelvic free fluid. No extraluminal air is seen. No abscess. Bladder not distended. Follicular change in the ovaries. Uterus surgically absent. No pelvic lymphade nopathy. Bones: Degenerative disc disease L4-L5 and L5-S1. IMPRESSION: 1. GENERALIZED COLONIC DIVERTICULOSIS. MILD ACUTE DIVERTICULITIS ALONG THE MID TO DISTAL SIGMOID. ARA E MILD REACTIVE PELVIC FREE FLUID. NO ABSCESS OR FREE AIR. 2. SUBTLE FOCAL CORTICAL HYPOENHANCEMENT MEDIAL LEFT KIDNEY MAY BE PARTIAL VOLUME AFFECTS. CORRELATE WITH URINALYSIS TO EXCLUDE THE POSSIBILITY OF A PYELONEPHRITIS. 3. HEPATOMEGALY (22.3 CM) WITH HEPATIC STEATOSIS.
[2019-09-01] MEDS ORDERED: cefTRIAXone IN SWFI 1,000 MG/10 ML SYRINGE IVP STA (10:27)
[2019-09-01] MEDS ORDERED: metroNIDAZOLE-NS PMX 500 MG in SALINE 1 100ML.BAG IVPB STA (10:27)
[2019-09-01 11:09] VITALS: BP 147/95; PULSE 67; TEMP 98
[2019-09-01 11:30] LABS: Color,Urine Amber
[2019-09-01 11:31] LABS: Appearance,Urine Clear (Clear); Bilirubin,Urine Negative (Negative); Blood,Urine Negative (Negative); Glucose,Urine (UA) Negative (Negative); Ketones,Urine Negative (Negative); Leukocyte Esterase,Urine Negative (Negative); Nitrite,Urine Negative (Negative); Protein,Urine Negative (Negative); Specific Gravity,Urine 1.015 (1.001-1.035); Urobilinogen,Urine <2.0 mg/dL (<2.0)
== END 2019-09-01 12:05 | disposition home or self-care (01) ==
LOC: EC 08:35
DX: K57.30 Diverticulosis of large intestine without perforation or abscess without bleeding (principal); K76.0 Fatty (change of) liver, not elsewhere classified; R16.0 Hepatomegaly, not elsewhere classified; Z79.899 Other long term (current) drug therapy; Z88.1 Allergy status to other antibiotic agents; Z88.2 Allergy status to sulfonamides; Z88.6 Allergy status to analgesic agent; Z91.018 Allergy to other foods; Z88.7 Allergy status to serum and vaccine; Z91.048 Other nonmedicinal substance allergy status; Z90.710 Acquired absence of both cervix and uterus
CPT/HCPCS: 36415; 80053; 82150; 83605; 83690; 85025; 85610; 85730; 81003; 81025; 74177; 99284; 96365; 96375; 96361 ×2; J0696; Q9967

== ENCOUNTER 2020-10-21 20:15 | Emergency (ER) | payer MEDICAID ==
[2020-10-21] MEDS ORDERED: ONDANSETRON ODT 4 MG TAB PO STA (21:16)
[2020-10-21] MEDS ORDERED: Acetaminophen-Codeine 300-30mg TAB PO STA (21:17)
--- NOTE | 2020-10-21 21:17 | ED ---
Fever HPI - General Chief Complaint: Shortness of Breath Stated Complaint: Headache, fever Time Seen by Provider: 10/21/20 21:01 Source: patient Mode of arrival: ambulatory Limitations: no limitations - History of Present Illness Initial Comments: This patient is a 40-year-old woman who presents with a constellation of complaints. She started to have a little bit of headache that she thought may been ALLERGY or sinus related to starting 4-5 days ago. She does have history of occasional migraine but states this felt different. It is not worst headache of life. No neurologic symptoms associated. Over the course of the past day or so she has also developed fever or chills, myalgias, low bit of cough. Patient had a day of what she is describing as diarrhea. Triage had noted shortness of breath, but she states that that is only when she is wearing the mask, not otherwise. Patient has not had catherine virus vaccine or infection. MD Complaint: fever, other Onset/Timin -: days(s) Temperature Source: tympanic Context: sick contacts Associated Symptoms: chills, myalgias, headache, cough Treatments Prior to Arrival: Acetaminophen - Related Data Home Medications Medication Instructions Recorded Confirmed Topiramate [Topamax] 100 mg PO HS 10/08/17 09/01/19 Multivitamins, Thera [Multivitamin 1 tab PO DAILY 09/01/19 09/01/19 (formulary)] Previous Rx's Medication Instructions Recorded Amoxic-Pot Clav 875-125Mg 1 tab PO Q12HR #20 tablet 09/01/19 [Augmentin 875-125] HYDROcodone/APAP 5-325MG [Silex 1 tab PO Q6HR PRN #12 tab 09/01/19 5-325] Azithromycin [Zithromax Z-pack (6 250 mg PO DIRECTED #6 tab 10/22/20 tabs)] Ondansetron Odt [Zofran ODT] 4 mg PO Q8HR PRN #10 tab 10/22/20 Allergies Allergy/AdvReac Type Severity Reaction Status Date / Time clindamycin Allergy Rash/Hives Verified 10/21/20 20:56 perfume Allergy Unknown Verified 10/21/20 20:56 Sulfa (Sulfonamide Allergy Rash/Hives Verified 10/21/20 20:56 Antibiotics) acetaminophen AdvReac Chest Pain Verified 10/21/20 20:56 [From Excedrin Migraine] aspirin AdvReac Chest Pain Verified 10/21/20 20:56 [From Excedrin Migraine] caffeine AdvReac Chest Pain Verified 10/21/20 20:56 [From Excedrin Migraine] flu vaccination Allergy Unknown Uncoded 10/21/20 20:56 Review of Systems ROS Statement: Those systems with pertinent positive or pertinent negative responses have been documented in the HPI. ROS Other: All systems not noted in ROS Statement are negative. Constitutional: Reports: fever, chills. Denies: weakness Eyes: Denies: eye pain, vision change Respiratory: Reports: cough. Denies: dyspnea, wheezes Cardiovascular: Denies: chest pain, palpitations, edema Gastrointestinal: Reports: diarrhea. Denies: abdominal pain, nausea, vomiting Genitourinary: Denies: dysuria, hematuria Musculoskeletal: Reports: myalgia Skin: Denies: rash Neurological: Reports: headache. Denies: weakness, numbness Past Medical History Past Medical History: Pneumonia Additional Past Medical History / Comment(s): diverticulitis and migraines History of Any Multi-Drug Resistant Organisms: None Reported Past Surgical History: Adenoidectomy, Hysterectomy, Tonsillectomy Past Psychological History: No Psychological Hx Reported Smoking Status: Never smoker Past Alcohol Use History: Rare Past Drug Use History: None Reported General Exam Limitations: no limitations General appearance: alert, in no apparent distress Head exam: Present: atraumatic, normocephalic Eye exam: Present: normal appearance, PERRL, EOMI. Absent: scleral icterus, conjunctival injection Neck exam: Present: normal inspection, full ROM. Absent: meningismus Respiratory exam: Present: normal lung sounds bilaterally. Absent: respiratory distress, wheezes, rales, rhonchi, stridor Cardiovascular Exam: Present: regular rate, normal rhythm, normal heart sounds. Absent: systolic murmur, diastolic murmur, rubs, gallop GI/Abdominal exam: Present: soft. Absent: distended, tenderness, guarding, rebound, rigid, mass Extremities exam: Present: normal inspection, normal capillary refill. Absent: pedal edema, calf tenderness Back exam: Present: normal inspection. Absent: CVA tenderness (R), CVA ten derness (L) Neurological exam: Present: alert Skin exam: Present: warm, dry, intact, normal color. Absent: rash Course Vital Signs 10/21/20 10/21/20 10/21/20 20:53 21:33 21:34 Temperature 101.4 F H Pulse Rate 103 H 89 Respiratory 28 H 20 28 H Rate Blood Pressure 139/83 131/88 O2 Sat by Pulse 98 98 Oximetry 10/22/20 10/22/20 00:00 00:15 Temperature 98.9 F Pulse Rate 63 63 Respiratory 16 18 Rate Blood Pressure 106/72 144/87 O2 Sat by Pulse 96 98 Oximetry Medical Decision Making - Lab Data Result diagrams: 10/21/20 22:53 10/21/20 22:53 Lab Results 10/21/20 10/21/20 10/21/20 Range/Units 20:56 22:53 22:53 WBC 4.1 (3.8-10.6) k/uL RBC 4.92 (3.80-5.40) m/uL Hgb 14.8 (11.4-16.0) gm/dL Hct 42.4 (34.0-46.0) % MCV 86.3 (80.0-100.0) fL MCH 30.0 (25.0-35.0) pg MCHC 34.8 (31.0-37.0) g/dL RDW 12.1 (11.5-15.5) % Plt Count 117 L (150-450) k/uL MPV 8.7 Neutrophils % 77 % Lymphocytes % 19 % Monocytes % 2 % Eosinophils % 2 % Basophils % 1 % Neutrophils # 3.1 (1.3-7.7) k/uL Lymphocytes # 0.8 L (1.0-4.8) k/uL Monocytes # 0.1 (0-1.0) k/uL Eosinophils # 0.1 (0-0.7) k/uL Basophils # 0.0 (0-0.2) k/uL D-Dimer 0.32 (<0.60) mg/L FEU Sodium (137-145) mmol/L Potassium (3.5-5.1) mmol/L Chloride (98-107) mmol/L Carbon Dioxide (22-30) mmol/L Anion Gap mmol/L BUN (7-17) mg/dL Creatinine (0.52-1.04) mg/dL Est GFR (CKD-EPI)AfAm (>60 ml/min/1.73 sqM) Est GFR (CKD-EPI)NonAf (>60 ml/min/1.73 sqM) Glucose (74-99) mg/dL Calcium (8.4-10.2) mg/dL Total Bilirubin (0.2-1.3) mg/dL AST (14-36) U/L ALT (4-34) U/L Alkaline Phosphatase (38-126) U/L Total Protein (6.3-8.2) g/dL Albumin (3.5-5.0) g/dL Coronavirus (PCR) Detected A (Not Detectd) 10/21/20 Range/Units 22:53 WBC (3.8-10.6) k/uL RBC (3.80-5.40) m/uL Hgb (11.4-16.0) gm/dL Hct (34.0-46.0) % MCV (80.0-100.0) fL MCH (25.0-35.0) pg MCHC (31.0-37.0) g/dL RDW (11.5-15.5) % Plt Count (150-450) k/uL MPV Neutrophils % % Lymphocytes % % Monocytes % % Eosinophils % % Basophils % % Neutrophils # (1.3-7.7) k/uL Lymphocytes # (1.0-4.8) k/uL Monocytes # (0-1.0) k/uL Eosinophils # (0-0.7) k/uL Basophils # (0-0.2) k/uL D-Dimer (<0.60) mg/L FEU Sodium 136 L (137-145) mmol/L Potassium 3.6 (3.5-5.1) mmol/L Chloride 107 (98-107) mmol/L Carbon Dioxide 18 L (22-30) mmol/L Anion Gap 11 mmol/L BUN 12 (7-17) mg/dL Creatinine 0.78 (0.52-1.04) mg/dL Est GFR (CKD-EPI)AfAm >90 (>60 ml/min/1.73 sqM) Est GFR (CKD-EPI)NonAf >90 (>60 ml/min/1.73 sqM) Glucose 110 H (74-99) mg/dL Calcium 8.4 (8.4-10.2) mg/dL Total Bilirubin 0.6 (0.2-1.3) mg/dL AST 56 H (14-36) U/L ALT 58 H (4-34) U/L Alkaline Phosphatase 78 (38-126) U/L Total Protein 6.4 (6.3-8.2) g/dL Albumin 3.6 (3.5-5.0) g/dL Coronavirus (PCR) (Not Detectd) Disposition Clinical Impression: COVID-19 Disposition: HOME SELF-CARE Condition: Good Instructions (If sedation given, give patient instructions): Coronavirus Disease 2019 (COVID-19) Prescriptions: Azithromycin [Zithromax Z-pack (6 tabs)] 250 mg PO DIRECTED #6 tab Ondansetron Odt [Zofran ODT] 4 mg PO Q8HR PRN #10 tab PRN Reason: Nausea Is patient prescribed a controlled substance at d/c from ED?: No Referrals: Vannessa Dougherty RN [REGISTERED NURSE] - 1-2 days
--- NOTE | 2020-10-21 22:17 | XR ---
EXAMINATION TYPE: XR chest 1V DATE OF EXAM: 10/21/2020 COMPARISON: 04/04/2018. HISTORY: Fever. TECHNIQUE: Single frontal view of the chest is obtained. FINDINGS: There is focal right midlung opacity. No pleural effusion, or pneumothorax seen. The card iac silhouette size is within normal limits. The osseous structures are intact. IMPRESSION: Focal right midlung opacity, consistent with infiltrate.
[2020-10-21] MEDS ORDERED: AZITHROMYCIN 500 MG TAB PO STA (22:35)
[2020-10-21 23:02] LABS: Basophils % (A) 1 %; Eosinophils # (A) 0.1 k/uL (0-0.7); Eosinophils % (A) 2 %; HCT 42.4 % (34.0-46.0); HGB 14.8 gm/dL (11.4-16.0); Lymphocytes # (A) 0.8 k/uL (1.0-4.8); Lymphocytes % (A) 19 %; MCHC 34.8 g/dL (31.0-37.0); MCV 86.3 fL (80.0-100.0); Mean Platelet Volume 8.7; Monocytes # (A) 0.1 k/uL (0-1.0); Monocytes % (A) 2 %; Neutrophils # (A) 3.1 k/uL (1.3-7.7); Neutrophils % (A) 77 %; Platelet Count 117 k/uL (150-450); RBC 4.92 m/uL (3.80-5.40); RDW 12.1 % (11.5-15.5); WBC 4.1 k/uL (3.8-10.6)
[2020-10-21] MEDS ORDERED: SODIUM CHLORIDE 0.9% 50 ML IVPB ONE (23:15)
[2020-10-21] MEDS ORDERED: BAMLANIVIMAB (EUA) 700 MG, ETESEVIMAB (EUA) 1,400 MG in SODIUM CHLORIDE 0.9% 50 ML IVPB ONE (23:15)
[2020-10-21 23:21] LABS: ALT 58 U/L (4-34); AST 56 U/L (14-36); African American GFR (CKD) >90 (>60 ml/min/1.73 sqM); Albumin 3.6 g/dL (3.5-5.0); Alkaline Phosphatase 78 U/L (38-126); Anion Gap 11 mmol/L; Blood Urea Nitrogen 12 mg/dL (7-17); Calcium 8.4 mg/dL (8.4-10.2); Carbon Dioxide 18 mmol/L (22-30); Chloride 107 mmol/L (98-107); Glucose 110 mg/dL (74-99); Non-African American GFR(CKD) >90 (>60 ml/min/1.73 sqM); Potassium 3.6 mmol/L (3.5-5.1); Sodium 136 mmol/L (137-145); Total Bilirubin 0.6 mg/dL (0.2-1.3); Total Protein 6.4 g/dL (6.3-8.2)
[2020-10-21] MEDS ORDERED: ONDANSETRON 4 MG/2 ML VIAL IVP STA (23:32)
[2020-10-22 00:17] VITALS: RESP 18
[2020-10-22] MEDS ORDERED: METOCLOPRAMIDE 5 MG/ML 2 ML VIAL IVP STA (00:56)
[2020-10-22 01:47] VITALS: BP 109/72; PULSE 84; TEMP 99.2
== END 2020-10-22 01:48 | disposition home or self-care (01) ==
LOC: EC 20:15
DX: U07.1 COVID-19 (principal)
CPT/HCPCS: 36415; 85379; 80053; 85025; 87635; 71045; 99285; 96365; 96375; J2765; J2405; J0696; Q0245

== ENCOUNTER → 2020-11-14 | Outpatient (CLI) | payer MEDICAID ==
--- NOTE | 2020-11-14 14:40 | MM ---
Reason for exam: screening (asymptomatic). Baseline mammogram. History: Patient is postmenopausal. Family history of breast cancer in mother at age 50 and breast cancer in aunt. Took hormonal contraceptives for 2 years. Physical Findings: Nurse did not find any significant physical abnormalities on exam. MG 3D Screening Mammo W/Cad Bilateral CC and MLO view(s) were taken. Finding: There are grouped/clustered, fine calcifications in the posterior position of the left breast CC view. These results were verbally communicated with the patient and result sheet given to the patient on 11/14/20. ASSESSMENT: Incomplete: need additional imaging evaluation, BI-RAD 0 RECOMMENDATION: Special view mammogram of the left breast. [facility] will attempt to contact patient to return for supplemental views.
== END | disposition home or self-care (01) ==
LOC: RADMAMWWP 09:33
PROVIDERS: ATTEND Obstetrics & Gynecology
DX: Z12.31 Encounter for screening mammogram for malignant neoplasm of breast (principal); Z80.3 Family history of malignant neoplasm of breast; Z78.0 Asymptomatic menopausal state
CPT/HCPCS: 77063; 77067

== ENCOUNTER → 2020-11-17 | Outpatient (CLI) | payer MEDICAID ==
--- NOTE | 2020-11-17 12:24 | MM ---
Reason for exam: additional evaluation requested from abnormal screening. Last mammogram was performed less than 1 month ago. History: Patient is postmenopausal. Family history of breast cancer in mother at age 50 and breast cancer in aunt. Took hormonal contraceptives for 2 years. Physical Findings: Breast exam preformed at baseline screening. MG 3D Work Up W/Cad LT CC with magnification, LM with magnification, and LM view(s) were taken of the left breast. Prior study comparison: November 14, 2020, bilateral MG 3d screening mammo w/cad. The breast tissue is heterogeneously dense. This may lower the sensitivity of mammography. Finding: There are indeterminate fine grouped/clustered calcifications in the 6 o'clock middle to inferior position of the left breast 7cm from the nipple. These results were verbally communicated with the patient and result sheet given to the patient on 11/17/20. ASSESSMENT: Suspicious, BI-RAD 4 RECOMMENDATION: Stereotactic core biopsy of the left breast. Called Dr. Burden's office with mammographic findings and has scheduled an appointment for the patient for 01/04/21 at 8:[address] Bedolla. Biopsy scheduled for 12/25/20 at 8:00. PRELIMINARY REPORT CALLED AND FAXED TO DR. BEDOLLA ON 11/17/20.
== END | disposition home or self-care (01) ==
LOC: RADMAMWWP 09:44
PROVIDERS: ATTEND Obstetrics & Gynecology
DX: R92.1 Mammographic calcification found on diagnostic imaging of breast (principal); R92.2 Inconclusive mammogram; Z80.3 Family history of malignant neoplasm of breast; Z78.0 Asymptomatic menopausal state
CPT/HCPCS: 77061; 77065

== ENCOUNTER → 2020-12-25 | Day surgery (SDC) | payer MEDICAID ==
[2020-12-25 07:21] VITALS: RESP 16
[2020-12-25 08:43] VITALS: BP 151/93; PULSE 67; TEMP 98.1
--- NOTE | 2020-12-25 09:13 | MM ---
EXAMINATION TYPE: MG stereo VAD BX LT DATE OF EXAM: 12/25/2020 COMPARISON: 11/17/2020 CLINICAL HISTORY: Left breast calcifications TECHNIQUE: Stereotactic guided core biopsy of left breast. FINDINGS: The procedure of stereotactic guided core biopsy was explained to the patient. Benefits, alternatives, and risks were discussed. An informed consent was then obtained. The shortness pathway for biopsy was chosen. Shortness pathway was cranial approach. I performed the localization and the remainder of the procedure. A vacuum assisted biopsy gun was used to obtain multiple core samples. The patient tolerated the procedure well without any immediate complication. The patient was kept in the radiology department for short stay after the procedure and then discharged home in stable condition. Targeted calcifications are identified in specimen mammogram. Post biopsy mammogram shows the clip to appear in satisfactory position relative to the targeted area of concern on the preprocedure images. IMPRESSION: SUCCESSFUL, UNCOMPLICATED STEREOTACTIC GUIDED CORE BIOPSY OF AREA OF CONCERN IN THE left BREAST, FULL PATHOLOGY RESULTS TO FOLLOW. Pathology Results: Benign LEFT BREAST, CORE BIOPSY: Benign breast tissue with fibrocystic change, columnar cell change and focal microcalcification. Recommendation Follow up mammogram of the left breast in 6 months. MARBIN
== END ==
LOC: RADMAMWWP 06:55
PROVIDERS: ATTEND Surgery
DX: N60.12 Diffuse cystic mastopathy of left breast (principal); R92.0 Mammographic microcalcification found on diagnostic imaging of breast; Z88.6 Allergy status to analgesic agent; Z88.1 Allergy status to other antibiotic agents; Z88.2 Allergy status to sulfonamides; Z88.8 Allergy status to other drugs, medicaments and biological substances
CPT/HCPCS: 88305; 19081; A4648; J2001

== ENCOUNTER → 2021-06-18 | Outpatient (CLI) | payer MEDICAID ==
--- NOTE | 2021-06-18 10:32 | MM ---
Reason for exam: follow-up at short interval from prior study. Last mammogram was performed 7 months ago. History: Patient is postmenopausal. Family history of breast cancer in mother at age 50 and breast cancer in aunt. Benign MG stereo VAD BX LT of the left breast, December 25, 2020. Took hormonal contraceptives for 2 years. Physical Findings: Nurse did not find any significant physical abnormalities on exam. MG 3D Diag Mammo W/Cad LT CC and MLO view(s) were taken of the left breast. Prior study comparison: November 17, 2020, left breast MG 3d work up w/cad LT. November 14, 2020, bilateral MG 3d screening mammo w/cad. The breast tissue is heterogeneously dense. This may lower the sensitivity of mammography. Previous mammotome biopsy in the left breast. No significant new findings when compared with previous films. These results were verbally communicated with the patient and result sheet given to the patient on 06/18/21. ASSESSMENT: Benign, BI-RAD 2 RECOMMENDATION: Return to routine screening mammogram schedule for both breasts. Back on schedule.
== END | disposition home or self-care (01) ==
LOC: RADMAMWWP 10:01
PROVIDERS: ATTEND Surgery
DX: R92.8 Other abnormal and inconclusive findings on diagnostic imaging of breast (principal); Z80.3 Family history of malignant neoplasm of breast; Z78.0 Asymptomatic menopausal state
CPT/HCPCS: 77061; 77065

== ENCOUNTER → 2022-03-13 | Outpatient (CLI) | payer OTHER ==
--- NOTE | 2022-03-14 08:14 | MM ---
Reason for Exam: Screening (asymptomatic). Last mammogram was performed 1 year(s) and 3 month(s) ago. Patient History: Menarche at age 12. First Full-Term at age 26. Hysterectomy at age 32. Postmenopausal. Patient used Hormonal Contraceptives for 2 years. 12/25/2020, Benign Core Biopsy on the left side. Mother had breast cancer, age 50. Risk Values: [place] 5 year model risk: 1.9%. NCI Lifetime model risk: 24.5%. Prior Study Comparison: 11/14/2020 Bilateral Screening Mammogram, [facility]. 11/17/2020 Left Diagnostic Mammogram, [facility]. 06/18/2021 Left Diagnostic Mammogram, [facility]. Tissue Density: The breast tissue is heterogeneously dense. This may lower the sensitivity of mammography. Findings: Analyzed By CAD. There is no suspicious group of microcalcifications or new suspicious mass in either breast. Previous mammotome biopsy in the left breast. No significant change from prior exam. Overall Assessment: Benign, BI-RAD 2 Management: Screening Mammogram of both breasts in 1 year. A clinical breast exam by your physician is recommended on an annual basis and results should be correlated with mammographic findings. Electronically signed and approved by: Edward Sidhu D.O.
== END | disposition home or self-care (01) ==
LOC: RADMAMWWP 16:20
PROVIDERS: ATTEND Family Medicine
DX: Z12.31 Encounter for screening mammogram for malignant neoplasm of breast (principal); Z78.0 Asymptomatic menopausal state; Z80.3 Family history of malignant neoplasm of breast
CPT/HCPCS: 77063; 77067

== ENCOUNTER 2023-06-13 07:31 | Emergency (ER) | payer OTHER ==
[2023-06-13] MEDS ORDERED: FAMOTIDINE 20 MG/2 ML VIAL IV STA (07:50)
[2023-06-13] MEDS ORDERED: methylPREDNISolone SOD SUCCI 125 MG/2 ML VIAL IV STA (07:50)
[2023-06-13] MEDS ORDERED: SODIUM CHLORIDE 0.9% 1,000 ML IV STA (08:26)
[2023-06-13 08:53] LABS: Basophils # (A) 0.1 k/uL (0-0.2); Basophils % (A) 0 %; Eosinophils # (A) 0.2 k/uL (0-0.7); Eosinophils % (A) 1 %; HCT 49.9 % (34.0-46.0); HGB 17.3 gm/dL (11.4-16.0); Lymphocytes # (A) 1.7 k/uL (1.0-4.8); Lymphocytes % (A) 9 %; MCHC 34.6 g/dL (31.0-37.0); MCV 89.6 fL (80.0-100.0); Mean Platelet Volume 8.8; Monocytes # (A) 0.3 k/uL (0-1.0); Monocytes % (A) 2 %; Neutrophils # (A) 16.2 k/uL (1.3-7.7); Neutrophils % (A) 87 %; Platelet Count 238 k/uL (150-450); RBC 5.57 m/uL (3.80-5.40); RDW 12.6 % (11.5-15.5); WBC 18.6 k/uL (3.8-10.6)
--- NOTE | 2023-06-13 08:57 | XR ---
EXAMINATION TYPE: XR chest 2V DATE OF EXAM: 06/13/2023 8:48 AM CLINICAL INDICATION:Female, 43 years old with history of difficulty breathing; [facility] COMPARISON: Chest radiographs from 10/21/2020 TECHNIQUE: XR chest 2V Frontal and lateral views of the chest. FINDINGS: Lungs/Pleura: There is no evidence of pleural effusion, focal consolidation, or pneumothorax. Pulmonary vascularity: Unremarkable. Heart/mediastinum: Cardiomediastinal silhouette is unremarkable. Musculoskeletal: No acute osseous pathology. IMPRESSION: No acute cardiopulmonary disease/process.
[2023-06-13 09:07] LABS: INR 0.9 (<1.2); Partial Thromboplastin Time 25.7 sec (22.0-30.0); Prothrombin Time 10.1 sec (10.0-12.5)
[2023-06-13 09:22] LABS: ALT 44 U/L (4-34); African American GFR (CKD) >90 (>60 ml/min/1.73 sqM); Anion Gap 14 mmol/L; Blood Urea Nitrogen 19 mg/dL (7-17); Calcium 9.6 mg/dL (8.4-10.2); Carbon Dioxide 21 mmol/L (22-30); Chloride 102 mmol/L (98-107); Glucose 149 mg/dL (74-99); Non-African American GFR(CKD) >90 (>60 ml/min/1.73 sqM); Sodium 137 mmol/L (137-145); Total Bilirubin 1.3 mg/dL (0.2-1.3)
[2023-06-13 09:26] LABS: Albumin 4.7 g/dL (3.5-5.0); Total Protein 8.3 g/dL (6.3-8.2)
[2023-06-13 09:27] LABS: AST 58 U/L (14-36); Alkaline Phosphatase 103 U/L (38-126)
--- NOTE | 2023-06-13 10:32 | ED ---
Allergic Reaction HPI - General Chief complaint: Allergic Reaction Stated complaint: allergic reaction/ SOB Time Seen by Provider: 06/13/23 07:46 Source: patient Mode of arrival: ambulatory Limitations: no limitations - History of Present Illness Initial Comments: 43-year-old female who presents to the emergency department reporting difficulty breathing. States that she was recently diagnosed with bronchitis and took a course of steroids. States that she has also been having epistaxis. She put a humidifier in her room last night because of the symptoms. States that she awoke and was having a hard time breathing. Patient concerned that she is having an ALLERGIC reaction. She took 50 mg of Benadryl at home and states that she has had some improvement in her symptoms. She does have several ALLERGIES but denies any known exposures. She denies any fevers. Admits cough with no production. Admits to some right-sided chest pain especially with inspiration. No sick contacts. No fevers. No underlying lung conditions. No other alleviating, precipitating or modifying factors - Related Data Home Medications Medication Instructions Recorded Confirmed Topiramate [Topamax] 100 mg PO HS 10/08/17 12/25/20 Multivitamins, Thera [Multivitamin 1 tab PO DAILY 09/01/19 12/25/20 (formulary)] Cholecalciferol [Vitamin D3 (25 25 mcg PO DAILY 12/19/20 12/25/20 Mcg = 1000 Iu)] Cyanocobalamin [Vitamin B-12] 500 mcg PO DAILY 12/19/20 12/25/20 Loratadine [Claritin] 10 mg PO DAILY 12/19/20 12/25/20 Previous Rx's Medication Instructions Recorded Albuterol Inhaler [Ventolin Hfa 1 puff INHALATION Q4HR PRN #1 each 06/13/23 Inhaler] Doxycycline Hyclate 100 mg PO BID #14 tab 06/13/23 predniSONE [Deltasone] 20 mg PO BID #10 tab 06/13/23 Allergies Allergy/AdvReac Type Severity Reaction Status Date / Time clindamycin Allergy Rash/Hives Verified 06/13/23 07:46 fexofenadine [From Christa] Allergy Rash/Hives Verified 06/13/23 07:46 perfume Allergy Unknown Verified 06/13/23 07:46 Sulfa (Sulfonamide Allergy Rash/Hives Verified 06/13/23 07:46 Antibiotics) acetaminophen AdvReac Chest Pain Verified 06/13/23 07:46 [From Excedrin Migraine] aspirin AdvReac Chest Pain Verified 06/13/23 07:46 [From Excedrin Migraine] caffeine AdvReac Chest Pain Verified 06/13/23 07:46 [From Excedrin Migraine] flu vaccination Allergy Unknown Uncoded 06/13/23 07:46 Review of Systems ROS Statement: Those systems with pertinent positive or pertinent negative responses have been documented in the HPI. ROS Other: All systems not noted in ROS Statement are negative. Past Medical History Past Medical History: Pneumonia Additional Past Medical History / Comment(s): diverticulitis and migraines History of Any Multi-Drug Resistant Organisms: None Reported Past Surgical History: Adenoidectomy, Hysterectomy, Tonsillectomy Past Anesthesia/Blood Transfusion Reactions: Motion Sickness Past Psychological History: Anxiety Smoking Status: Never smoker Past Alcohol Use History: Rare Past Drug Use History: None Reported General Exam Limitations: no limitations General appearance: alert, in no apparent distress Head exam: Present: atraumatic, normocephalic, normal inspection Eye exam: Present: normal appearance, PERRL, EOMI. Absent: scleral icterus, conjunctival injection, periorbital swelling ENT exam: Present: normal exam, mucous membranes moist Neck exam: Present: normal inspection. Absent: tenderness, meningismus, ly mphadenopathy Respiratory exam: Present: normal lung sounds bilaterally. Absent: respiratory distress, wheezes, rales, rhonchi, stridor Cardiovascular Exam: Present: normal rhythm, tachycardia, normal heart sounds. Absent: systolic murmur, diastolic murmur, rubs, gallop, clicks GI/Abdominal exam: Present: soft, normal bowel sounds. Absent: distended, tenderness, guarding, rebound, rigid Extremities exam: Present: normal inspection, full ROM, normal capillary refill. Absent: tenderness, pedal edema, joint swelling, calf tenderness Back exam: Present: normal inspection Neurological exam: Present: alert, oriented X3, CN II-XII intact Psychiatric exam: Present: normal affect, normal mood Skin exam: Present: warm, dry, intact, normal color. Absent: rash Course Vital Signs 06/13/23 06/13/23 06/13/23 07:44 07:50 10:14 Temperature 98.1 F Pulse Rate 106 H 99 101 H Respiratory 20 26 H 18 Rate Blood Pressure 130/89 O2 Sat by Pulse 97 97 95 Oximetry 06/13/23 10:50 Temperature 98.4 F Pulse Rate 96 Respiratory 20 Rate Blood Pressure 145/94 O2 Sat by Pulse 96 Oximetry Medical Decision Making - Medical Decision Making Was pt. sent in by a medical professional or institution (LEATHA Martinez, LITIGATION LEGAL ASSISTANT, urgent care, hospital, or long-term...) When possible be specific @ -No Did you speak to anyone other than the patient for history (EMS, parent, family, police, friend...)? What history was obtained from this source @ -No Did you review nursing and triage notes (agree or disagree)? Why? @ -I reviewed and agree with nursing and triage notes Were old charts reviewed (outside hosp., previous admission, EMS record, old EKG, old radiological studies, urgent care reports/EKG's, long-term records)? Report findings @ -No old charts were reviewed Differential Diagnosis (chest pain, altered mental status, abdominal pain women, abdominal pain men, vaginal bleeding, weakness, fever, dyspnea, syncope, headache, dizziness, GI bleed, back pain, seizure, CVA, palpatations, mental health, musculoskeletal)? @ -Differential Dyspnea: Coronary syndrome, arrhythmia, tamponade, asthma, COPD, pulmonary embolism, pneumonia, pneumothorax, pulmonary effusion, anaphylaxis, diabetic ketoacidosis, flailed chest, pulmonary contusion, diaphragmatic rupture, anemia, ne uromuscular, this is not meant to be an all-inclusive list. EKG interpreted by me (3pts min.). @ -Yes and demonstrates sinus rhythm with a rate of 96. pr interval 125. QRS 78. QTC of 399. ST depression in 2, 3, aVF likely rate dependent. PACs present X-rays interpreted by me (1pt min.). @ -Yes and demonstrates no acute process CT interpreted by me (1pt min.). @ -None done U/S interpreted by me (1pt. min.). @ -None done What testing was considered but not performed or refused? (CT, X-rays, U/S, labs)? Why? @ -None What meds were considered but not given or refused? Why? @ -None Did you discuss the management of the patient with other professionals (professionals i.e. LEATHA Martinez, LITIGATION LEGAL ASSISTANT, lab, RT, psych nurse, rn social services, optical worker, teacher, infantry officer, continuous pillowcase cutter)? Give summary @ -No Was smoking cessation discussed for >3mins.? @ -No Was critical care preformed (if so, how long)? @ -No Were there social determinants of health that impacted care today? How? (Homelessness, low income, unemployed, alcoholism, drug addiction, transportation, low edu. Level, literacy, decrease access to med. care, assisted, rehab)? @ -No Was there de-escalation of care discussed even if they declined (Discuss DNR or withdrawal of care, Hospice)? DNR status @ -No What co-morbidities impacted this encounter? (DM, HTN, Smoking, COPD, CAD, Cancer, CVA, ARF, Chemo, Hep., AIDS, mental health diagnosis, sleep apnea, morbid obesity)? @ -None Was patient admitted / discharged? Hospital course, mention meds given and route, prescriptions, significant lab abnormalities, going to OR and other pertinent info. @ -Upon arrival patient was placed into room 2. A thorough history and physical exam was performed. Patient has already taken 50 mg of Benadryl. I additionally prescribed her 125 of Solu-Medrol and 20 mg of Pepcid. Laboratory studies are conducted due to reported chest pain. Laboratory studies are r eviewed and within normal limits. Chest x-ray demonstrates no acute process. She does have a leukocytosis which may be related to the recent steroid use however due to her new reported symptoms the patient will be covered with antibiotics. I will prescribe her an inhaler. She is to continue taking Benadryl every 6 hours. I will additionally prescribed another course of steroids. Patient is to follow-up with her primary care doctor and return for any new or worsening symptoms. She was agreeable to this plan of the patient was discharged in stable condition Undiagnosed new problem with uncertain prognosis? @ -Yes Drug Therapy requiring intensive monitoring for toxicity (Heparin, Nitro, Insulin, Cardizem)? @ -No Were any procedures done? @ -No Diagnosis/symptom? @ -Acute bronchospasm, possible ALLERGIC reaction, leukocytosis Acute, or Chronic, or Acute on Chronic? @ -Acute Uncomplicated (without systemic symptoms) or Complicated (systemic symptoms)? @ -Complicated Side effects of treatment? @ -No Exacerbation, Progression, or Severe Exacerbation? @ -No Poses a threat to life or bodily function? How? (Chest pain, [place], [place], pneumonia, PE, COPD, DKA, ARF, appy, cholecystitis, CVA, Diverticulitis, Homicidal, Suicidal, threat to staff... and all critical care pts) @ -No - Lab Data Result diagrams: 06/13/23 08:34 06/13/23 08:34 Lab Results 06/13/23 06/13/23 06/13/23 Range/Units 08:34 08:34 08:34 WBC 18.6 H (3.8-10.6) k/uL RBC 5.57 H (3.80-5.40) m/uL Hgb 17.3 H (11.4-16.0) gm/dL Hct 49.9 H (34.0-46.0) % MCV 89.6 (80.0-100.0) fL MCH 31.0 (25.0-35.0) pg MCHC 34.6 (31.0-37.0) g/dL RDW 12.6 (11.5-15.5) % Plt Count 238 (150-450) k/uL MPV 8.8 Neutrophils % 87 % Lymphocytes % 9 % Monocytes % 2 % Eosinophils % 1 % Basophils % 0 % Neutrophils # 16.2 H (1.3-7.7) k/uL Lymphocytes # 1.7 (1.0-4.8) k/uL Monocytes # 0.3 (0-1.0) k/uL Eosinophils # 0.2 (0-0.7) k/uL Basophils # 0.1 (0-0.2) k/uL PT 10.1 (10.0-12.5) sec INR 0.9 (<1.2) APTT 25.7 (22.0-30.0) sec D-Dimer 0.46 (<0.60) mg/L FEU Sodium 137 (137-145) mmol/L Potassium 5.0 (3.5-5.1) mmol/L Chloride 102 (98-107) mmol/L Carbon Dioxide 21 L (22-30) mmol/L Anion Gap 14 mmol/L BUN 19 H (7-17) mg/dL Creatinine 0.67 (0.52-1.04) mg/dL Est GFR (CKD-EPI)AfAm >90 (>60 ml/min/1.73 sqM) Est GFR (CKD-EPI)NonAf >90 (>60 ml/min/1.73 sqM) Glucose 149 H (74-99) mg/dL Calcium 9.6 (8.4-10.2) mg/dL Total Bilirubin 1.3 (0.2-1.3) mg/dL AST 58 H (14-36) U/L ALT 44 H (4-34) U/L Alkaline Phosphatase 103 (38-126) U/L Troponin I (0.000-0.034) ng/mL Total Protein 8.3 H (6.3-8.2) g/dL Albumin 4.7 (3.5-5.0) g/dL 06/13/23 Range/Units 08:34 WBC (3.8-10.6) k/uL RBC (3.80-5.40) m/uL Hgb (11.4-16.0) gm/dL Hct (34.0-46.0) % MCV (80.0-100.0) fL MCH (25.0-35.0) pg MCHC (31.0-37.0) g/dL RDW (11.5-15.5) % Plt Count (150-450) k/uL MPV Neutrophils % % Lymphocytes % % Monocytes % % Eosinophils % % Basophils % % Neutrophils # (1.3-7.7) k/uL Lymphocytes # (1.0-4.8) k/uL Monocytes # (0-1.0) k/uL Eosinophils # (0-0.7) k/uL Basophils # (0-0.2) k/uL PT (10.0-12.5) sec INR (<1.2) APTT (22.0-30.0) sec D-Dimer (<0.60) mg/L FEU Sodium (137-145) mmol/L Potassium (3.5-5.1) mmol/L Chloride (98-107) mmol/L Carbon Dioxide (22-30) mmol/L Anion Gap mmol/L BUN (7-17) mg/dL Creatinine (0.52-1.04) mg/dL Est GFR (CKD-EPI)AfAm (>60 ml/min/1.73 sqM) Est GFR (CKD-EPI)NonAf (>60 ml/min/1.73 sqM) Glucose (74-99) mg/dL Calcium (8.4-10.2) mg/dL Total Bilirubin (0.2-1.3) mg/dL AST (14-36) U/L ALT (4-34) U/L Alkaline Phosphatase (38-126) U/L Troponin I <0.012 (0.000-0.034) ng/mL Total Protein (6.3-8.2) g/dL Albumin (3.5-5.0) g/dL Disposition Clinical Impression: Bronchospasm, Allergic reaction, Leukocytosis Disposition: HOME SELF-CARE Condition: Stable Instructions (If sedation given, give patient instructions): Bronchospasm (ED), General Allergic Reaction (ED) Additional Instructions: Please take Benadryl every 6 hours. Take the steroids twice daily starting tomorrow. Use the inhaler every 4 hours. Follow up with the primary care doctor to ensure that your white blood cell count is improving after the antibiotics. Return for any new or worsening symptoms Prescriptions: predniSONE [Deltasone] 20 mg PO BID #10 tab Doxycycline Hyclate 100 mg PO BID #14 tab Albuterol Inhaler [Ventolin Hfa Inhaler] 1 puff INHALATION Q4HR PRN #1 each PRN Reason: Shortness Of Breath Is patient prescribed a controlled substance at d/c from ED?: No Referrals: None,Stated [Primary Care Provider] - 1-2 days Time of Disposition: 10:32
[2023-06-13 11:17] VITALS: BP 145/94; PULSE 96; RESP 20; TEMP 98.4
== END 2023-06-13 10:51 | disposition home or self-care (01) ==
LOC: EC 07:31
DX: J98.01 Acute bronchospasm (principal); T45.0X5A Adverse effect of antiallergic and antiemetic drugs, initial encounter; D72.829 Elevated white blood cell count, unspecified; Z86.59 Personal history of other mental and behavioral disorders; Z88.2 Allergy status to sulfonamides; Z88.1 Allergy status to other antibiotic agents; Z88.6 Allergy status to analgesic agent; Z88.7 Allergy status to serum and vaccine; Z88.8 Allergy status to other drugs, medicaments and biological substances
CPT/HCPCS: 36415; 85379; 80053; 84484; 85025; 85610; 85730; 71046; 99284; 96374; 96375; 96361; J2930; J3490